=== PATIENT | female | born 1950 | race Two or more races ===

== ENCOUNTER 2019-08-14 16:27 | Inpatient (IN) | payer OTHER, MEDICAID ==
[~2019-08-14] VITALS: Ht 157.5 cm; Wt 137.2 kg
[2019-08-14 17:03] LABS: Basophils # (auto) 0.1 10 ^3/uL (0-0.2); Basophils % (auto) 0.6 % (0.0-2.0); Eosinophils # (auto) 0.1 10 ^3/uL (0-0.8); Eosinophils % (auto) 1.1 % (0.0-7.0); Hematocrit 42.2 % (36.0-46.0); Hemoglobin 13.7 g/dL (12.2-16.2); Lymphocytes # (auto) 1.9 10 ^3/uL (0.4-5.4); Lymphocytes % (auto) 18.3 % (10.0-50.0); Mean Corpuscular Hemoglobin 29.7 pg (28.0-32.0); Mean Corpuscular Hgb Conc. 32.5 g/dL (32.0-36.0); Mean Corpuscular Volume 91.2 fL (80.0-100.0); Monocytes # (auto) 0.6 10 ^3/uL (0-1.3); Monocytes % (auto) 5.8 % (0.0-12.0); Neutrophils # (auto) 7.8 10 ^3/uL (1.6-8.6); Neutrophils % (auto) 74.2 % (37.0-80.0); Platelet Count (auto) 209 10^3/uL (140-450); Red Blood Cells 4.62 10^6/uL (4.0-5.20); Red Cell Distribution Width 16.9 % (11.8-14.3); White Blood Cell 10.5 10^3/uL (4.4-10.8)
[2019-08-14] MEDS ORDERED: FUROSEMIDE 40 MG/4 ML VIAL IV ONE (17:15)
[2019-08-14 17:19] LABS: Albumin 3.2 g/dL (3.4-5.0); Calcium 9.1 mg/dL (8.5-10.1)
[2019-08-14 17:25] LABS: Bilirubin, Total 0.5 mg/dL (0.2-1.0); Total Protein 7.6 g/dL (6.4-8.2)
[2019-08-14 17:28] LABS: BUN/Creatinine Ratio 15.6
[2019-08-14 17:36] LABS: INR 1.04 (0.9-1.15)
[2019-08-14 19:15] VITALS: BP 134/52
[2019-08-14] MEDS ORDERED: MORPHINE SULF INJ 2 MG/ML SYRINGE 1ML IV PRN (20:00)
[2019-08-14] MEDS ORDERED: ALBUTEROL SULF 2.5 MG/0.5ML(0.5%) NEB SOLN NEB PRN (20:00)
[2019-08-14] MEDS ORDERED: DEXTROSE (50%) 50ML SYRG IV PRN (20:00)
[2019-08-14] MEDS ORDERED: PROMETHAZINE HCL 25 MG/ML 1ML IV PRN (20:00)
[2019-08-14] MEDS ORDERED: NITROGLYCERIN 0.4 MG SL TAB SL PRN (20:00)
[2019-08-14] MEDS ORDERED: LACTULOSE 20Gm/30ML SOLN PO PRN (20:00)
[2019-08-14] MEDS ORDERED: TEMAZEPAM 15 MG CAP PO PRN (20:00)
[2019-08-14] MEDS ORDERED: traMADol HCL 50 MG TAB PO PRN (20:00)
[2019-08-14] MEDS: SODIUM CHLOR 0.9% PF (SALINE LOCK) 10ML VIAL/SYR IV SCH (22:09)
[2019-08-14] MEDS: ATORVASTATIN 20 MG TAB PO SCH (22:10)
[2019-08-14] MEDS: CARVEDILOL 3.125 MG TAB PO SCH (22:10)
[2019-08-14] MEDS: ACCU-CHEK COMFORT CURVE STRIP VI SCH (22:12)
[2019-08-14] MEDS: InsuLIN REG 1unit/0.01ml Soln (100units/ml) SC SCH (22:12)
[2019-08-14] MEDS: ALBUTEROL SULF 2.5 MG/0.5ML(0.5%) NEB SOLN NEB SCH (22:35)
[2019-08-14] MEDS: IPRATROPIUM BROM 0.5 MG/2.5ML INH SOL NEB SCH (22:35)
[2019-08-14] MEDS ORDERED: ALLO100T PO (22:52)
[2019-08-14] MEDS ORDERED: LIRA18IN2 SUBCUT (22:52)
[2019-08-14] MEDS ORDERED: ENAL2.5T PO (22:52)
[2019-08-14] MEDS ORDERED: LEVO25TA6 PO (22:52)
[2019-08-14] MEDS ORDERED: HYDR25TA4 PO (22:52)
[2019-08-14] MEDS ORDERED: ATOR1TAB PO (22:52)
[2019-08-14] MEDS ORDERED: INSLANTI SC (22:52)
[2019-08-14] MEDS ORDERED: AMLO5TAB15 PO (22:52)
[2019-08-15] VITALS (8 sets, daily range): BP systolic 122–149; BP diastolic 52–80
[2019-08-15] MEDS: ALBUTEROL SULF 2.5 MG/0.5ML(0.5%) NEB SOLN NEB SCH ×3 (06:30→22:37)
[2019-08-15] MEDS: FUROSEMIDE 40 MG/4 ML VIAL IV SCH ×2 (06:30→18:24)
[2019-08-15] MEDS: SODIUM CHLOR 0.9% PF (SALINE LOCK) 10ML VIAL/SYR IV SCH ×3 (06:30→21:40)
[2019-08-15] MEDS: IPRATROPIUM BROM 0.5 MG/2.5ML INH SOL NEB SCH ×3 (06:30→22:37)
[2019-08-15] MEDS: ACCU-CHEK COMFORT CURVE STRIP VI SCH ×4 (06:45→21:43)
[2019-08-15] MEDS: InsuLIN REG 1unit/0.01ml Soln (100units/ml) SC SCH ×4 (06:45→21:42)
[2019-08-15] MEDS: levoFLOXacin 500MG 100 ML IV SCH (09:56)
[2019-08-15] MEDS: ASPirin 81 mg TAB PO SCH (09:57)
[2019-08-15] MEDS: ENALAPRIL MALEATE 2.5 MG TAB PO SCH (09:57)
[2019-08-15] MEDS: CARVEDILOL 3.125 MG TAB PO SCH ×2 (09:58→21:41)
[2019-08-15] MEDS: NITROGLYCERIN 0.2MG/HR TOPICAL PATCH TD SCH (09:59)
[2019-08-15] MEDS ORDERED: ASPirin 81 mg TAB PO SCH (10:00)
[2019-08-15] MEDS ORDERED: ENOXAPARIN SOD 40 MG/0.4 ML SYRINGE SC SCH ×2 (10:00)
[2019-08-15 10:49] LABS: Albumin 3.1 g/dL (3.4-5.0); Calcium 8.8 mg/dL (8.5-10.1); Potassium 4.1 mmol/L (3.5-5.1)
[2019-08-15 10:54] LABS: BUN/Creatinine Ratio 23.6; Bilirubin, Total 0.4 mg/dL (0.2-1.0); Total Protein 7.6 g/dL (6.4-8.2)
[2019-08-15] MEDS: ENOXAPARIN SOD 100 MG/1 ML SYRINGE SC SCH ×2 (15:09→21:43)
[2019-08-15 16:11] LABS: Urine Bacteria MANY /hpf (None Seen); Urine Blood Negative /uL (Negative); Urine Hyaline Cast FEW /lpf (0 - 2); Urine Specific Gravity 1.014 (1.001-1.035); Urine WBC 2 /hpf (0 - 5)
[2019-08-15] MEDS: ATORVASTATIN 20 MG TAB PO SCH (21:41)
[2019-08-16 05:00] VITALS: BP 137/62
[2019-08-16] MEDS: SODIUM CHLOR 0.9% PF (SALINE LOCK) 10ML VIAL/SYR IV SCH ×3 (05:34→21:23)
[2019-08-16] MEDS: FUROSEMIDE 40 MG/4 ML VIAL IV SCH ×2 (05:35→18:21)
[2019-08-16] MEDS: ACCU-CHEK COMFORT CURVE STRIP VI SCH ×4 (06:05→21:54)
[2019-08-16] MEDS: InsuLIN REG 1unit/0.01ml Soln (100units/ml) SC SCH ×4 (06:05→21:54)
[2019-08-16] MEDS: IPRATROPIUM BROM 0.5 MG/2.5ML INH SOL NEB SCH ×3 (06:25→20:04)
[2019-08-16] MEDS: ALBUTEROL SULF 2.5 MG/0.5ML(0.5%) NEB SOLN NEB SCH ×3 (06:25→20:04)
[2019-08-16 06:49] LABS: Potassium 3.7 mmol/L (3.5-5.1)
[2019-08-16 06:51] LABS: BUN/Creatinine Ratio 30.3
[2019-08-16 09:00] VITALS: BP 146/87
[2019-08-16] MEDS: NITROGLYCERIN 0.2MG/HR TOPICAL PATCH TD SCH (10:00)
[2019-08-16] MEDS: ENOXAPARIN SOD 100 MG/1 ML SYRINGE SC SCH ×2 (10:19→21:25)
[2019-08-16] MEDS: levoFLOXacin 500MG 100 ML IV SCH (10:19)
[2019-08-16] MEDS: ENALAPRIL MALEATE 2.5 MG TAB PO SCH (10:20)
[2019-08-16] MEDS: ASPirin 81 mg TAB PO SCH (10:20)
[2019-08-16] MEDS: CARVEDILOL 3.125 MG TAB PO SCH ×2 (10:20→21:24)
[2019-08-16 14:08] VITALS: BP 114/55
[2019-08-16 16:36] VITALS: BP 119/65
[2019-08-16] MEDS: ATORVASTATIN 20 MG TAB PO SCH (21:24)
[2019-08-16 22:00] VITALS: BP 156/69
[2019-08-17 05:00] VITALS: BP 118/57
[2019-08-17] MEDS: SODIUM CHLOR 0.9% PF (SALINE LOCK) 10ML VIAL/SYR IV SCH ×3 (05:46→22:13)
[2019-08-17] MEDS: FUROSEMIDE 40 MG/4 ML VIAL IV SCH ×2 (05:46→18:15)
[2019-08-17] MEDS: InsuLIN REG 1unit/0.01ml Soln (100units/ml) SC SCH ×4 (06:04→22:12)
[2019-08-17] MEDS: ACCU-CHEK COMFORT CURVE STRIP VI SCH ×4 (06:05→22:13)
[2019-08-17] MEDS: IPRATROPIUM BROM 0.5 MG/2.5ML INH SOL NEB SCH ×2 (06:09→22:29)
[2019-08-17] MEDS: ALBUTEROL SULF 2.5 MG/0.5ML(0.5%) NEB SOLN NEB SCH ×2 (06:09→22:29)
[2019-08-17 08:53] VITALS: BP 156/81
[2019-08-17] MEDS: NITROGLYCERIN 0.2MG/HR TOPICAL PATCH TD SCH (10:00)
[2019-08-17] MEDS: ASPirin 81 mg TAB PO SCH (10:16)
[2019-08-17] MEDS: levoFLOXacin 500MG 100 ML IV SCH (10:16)
[2019-08-17] MEDS: CARVEDILOL 3.125 MG TAB PO SCH ×2 (10:17→22:15)
[2019-08-17] MEDS: ENALAPRIL MALEATE 2.5 MG TAB PO SCH (10:17)
[2019-08-17] MEDS: ENOXAPARIN SOD 100 MG/1 ML SYRINGE SC SCH ×2 (10:17→22:13)
[2019-08-17] MEDS ORDERED: LORazepam 2MG/ML-1ML VIAL IV PRN (13:45)
[2019-08-17 16:46] VITALS: BP 115/57
[2019-08-17 17:00] VITALS: BP 110/74
[2019-08-17] MEDS ORDERED: LEVOTHYROXINE SODIUM 25 MCG TAB PO ONE (17:00)
[2019-08-17] MEDS: SILDENAFIL CITRATE 20 MG TAB PO SCH (20:07)
[2019-08-17 22:00] VITALS: BP 123/77
[2019-08-17] MEDS: ATORVASTATIN 20 MG TAB PO SCH (22:13)
[2019-08-18 03:43] VITALS: BP 123/77
[2019-08-18 05:00] VITALS: BP 133/64
[2019-08-18 05:42] LABS: Basophils # (auto) 0.1 10 ^3/uL (0-0.2); Basophils % (auto) 0.6 % (0.0-2.0); Eosinophils # (auto) 0.2 10 ^3/uL (0-0.8); Eosinophils % (auto) 1.8 % (0.0-7.0); Hemoglobin 12.5 g/dL (12.2-16.2); Lymphocytes # (auto) 1.6 10 ^3/uL (0.4-5.4); Lymphocytes % (auto) 19.5 % (10.0-50.0); Mean Corpuscular Hemoglobin 29.9 pg (28.0-32.0); Mean Corpuscular Volume 90.8 fL (80.0-100.0); Monocytes # (auto) 0.6 10 ^3/uL (0-1.3); Monocytes % (auto) 6.9 % (0.0-12.0); Neutrophils % (auto) 71.2 % (37.0-80.0); Nucleated Red Blood Cells % 0.1 %; Platelet Count (auto) 209 10^3/uL (140-450); Red Blood Cells 4.19 10^6/uL (4.0-5.20); Red Cell Distribution Width 16.6 % (11.8-14.3); White Blood Cell 8.4 10^3/uL (4.4-10.8)
[2019-08-18 05:59] LABS: Calcium 8.8 mg/dL (8.5-10.1); Potassium 3.7 mmol/L (3.5-5.1)
[2019-08-18 06:01] LABS: BUN/Creatinine Ratio 34.4
[2019-08-18] MEDS: FUROSEMIDE 40 MG/4 ML VIAL IV SCH (06:11)
[2019-08-18] MEDS: SODIUM CHLOR 0.9% PF (SALINE LOCK) 10ML VIAL/SYR IV SCH ×3 (06:11→22:00)
[2019-08-18] MEDS: LEVOTHYROXINE SODIUM 25 MCG TAB PO SCH (06:12)
[2019-08-18] MEDS: ACCU-CHEK COMFORT CURVE STRIP VI SCH ×4 (06:12→22:00)
[2019-08-18] MEDS: InsuLIN REG 1unit/0.01ml Soln (100units/ml) SC SCH ×4 (06:14→21:59)
[2019-08-18] MEDS: ALBUTEROL SULF 2.5 MG/0.5ML(0.5%) NEB SOLN NEB SCH ×3 (06:48→21:25)
[2019-08-18] MEDS: IPRATROPIUM BROM 0.5 MG/2.5ML INH SOL NEB SCH ×3 (06:48→21:25)
[2019-08-18] MEDS: SILDENAFIL CITRATE 20 MG TAB PO SCH ×3 (08:42→22:00)
[2019-08-18 09:00] VITALS: BP 142/66
[2019-08-18] MEDS: ENOXAPARIN SOD 100 MG/1 ML SYRINGE SC SCH ×2 (10:45→22:00)
[2019-08-18] MEDS: ASPirin 81 mg TAB PO SCH (10:45)
[2019-08-18] MEDS: levoFLOXacin 500MG 100 ML IV SCH (10:45)
[2019-08-18] MEDS: CARVEDILOL 3.125 MG TAB PO SCH ×2 (10:46→22:00)
[2019-08-18] MEDS: ENALAPRIL MALEATE 2.5 MG TAB PO SCH (10:46)
[2019-08-18 12:36] VITALS: BP 131/61
[2019-08-18 21:46] VITALS: BP 136/89
[2019-08-18] MEDS: ATORVASTATIN 20 MG TAB PO SCH (21:59)
[2019-08-19 05:00] VITALS: BP 113/53
[2019-08-19 06:02] LABS: Basophils # (auto) 0 10 ^3/uL (0-0.2); Basophils % (auto) 0.6 % (0.0-2.0); Eosinophils # (auto) 0.2 10 ^3/uL (0-0.8); Eosinophils % (auto) 2.2 % (0.0-7.0); Hematocrit 38.5 % (36.0-46.0); Hemoglobin 12.7 g/dL (12.2-16.2); Lymphocytes # (auto) 1.5 10 ^3/uL (0.4-5.4); Lymphocytes % (auto) 19.4 % (10.0-50.0); Mean Corpuscular Hemoglobin 29.8 pg (28.0-32.0); Mean Corpuscular Hgb Conc. 32.9 g/dL (32.0-36.0); Mean Corpuscular Volume 90.7 fL (80.0-100.0); Monocytes # (auto) 0.5 10 ^3/uL (0-1.3); Monocytes % (auto) 6.6 % (0.0-12.0); Neutrophils # (auto) 5.7 10 ^3/uL (1.6-8.6); Neutrophils % (auto) 71.2 % (37.0-80.0); Nucleated Red Blood Cells % 0.1 %; Platelet Count (auto) 219 10^3/uL (140-450); Red Blood Cells 4.25 10^6/uL (4.0-5.20); Red Cell Distribution Width 16.8 % (11.8-14.3)
[2019-08-19] MEDS: SODIUM CHLOR 0.9% PF (SALINE LOCK) 10ML VIAL/SYR IV SCH ×3 (06:16→22:58)
[2019-08-19 06:18] LABS: Potassium 3.7 mmol/L (3.5-5.1)
[2019-08-19 06:28] LABS: BUN/Creatinine Ratio 32.9; Calcium 8.7 mg/dL (8.5-10.1)
[2019-08-19] MEDS: ACCU-CHEK COMFORT CURVE STRIP VI SCH ×4 (06:28→22:08)
[2019-08-19] MEDS: LEVOTHYROXINE SODIUM 25 MCG TAB PO SCH (06:28)
[2019-08-19] MEDS: InsuLIN REG 1unit/0.01ml Soln (100units/ml) SC SCH ×4 (06:34→22:08)
[2019-08-19] MEDS: ALBUTEROL SULF 2.5 MG/0.5ML(0.5%) NEB SOLN NEB SCH ×3 (07:06→22:20)
[2019-08-19] MEDS: IPRATROPIUM BROM 0.5 MG/2.5ML INH SOL NEB SCH ×3 (07:06→22:20)
[2019-08-19 09:22] VITALS: BP 135/50
[2019-08-19] MEDS ORDERED: levoFLOXacin 500 MG TAB PO ONE (09:30)
[2019-08-19] MEDS: SILDENAFIL CITRATE 20 MG TAB PO SCH ×3 (09:53→22:55)
[2019-08-19] MEDS: ASPirin 81 mg TAB PO SCH (09:54)
[2019-08-19] MEDS: ENOXAPARIN SOD 100 MG/1 ML SYRINGE SC SCH (09:55)
[2019-08-19] MEDS: levoFLOXacin 500 MG TAB PO SCH (09:55)
[2019-08-19] MEDS: CARVEDILOL 3.125 MG TAB PO SCH ×2 (09:58→22:57)
[2019-08-19] MEDS: SODIUM CHLORIDE 0.9% 1,000 ML IV SCH (12:01)
[2019-08-19 12:52] VITALS: BP 136/63
[2019-08-19] MEDS ORDERED: IOHEXOL 350 MG/ML 100ML IJ ONE (15:11)
[2019-08-19 17:16] VITALS: BP 130/61
[2019-08-19 20:00] VITALS: BP 136/63
[2019-08-19 21:55] VITALS: BP 146/73
[2019-08-19] MEDS: APIXABAN 5 MG TAB PO SCH (22:57)
[2019-08-19] MEDS: ATORVASTATIN 20 MG TAB PO SCH (22:58)
[2019-08-20] VITALS (8 sets, daily range): BP systolic 102–164; BP diastolic 55–80
[2019-08-20] MEDS: SODIUM CHLORIDE 0.9% 1,000 ML IV SCH (01:33)
[2019-08-20 05:54] LABS: Basophils # (auto) 0.1 10 ^3/uL (0-0.2); Basophils % (auto) 0.8 % (0.0-2.0); Eosinophils # (auto) 0.2 10 ^3/uL (0-0.8); Eosinophils % (auto) 2.2 % (0.0-7.0); Hematocrit 36.9 % (36.0-46.0); Hemoglobin 12.2 g/dL (12.2-16.2); Lymphocytes # (auto) 1.4 10 ^3/uL (0.4-5.4); Mean Corpuscular Hemoglobin 29.8 pg (28.0-32.0); Mean Corpuscular Volume 90.2 fL (80.0-100.0); Monocytes # (auto) 0.6 10 ^3/uL (0-1.3); Monocytes % (auto) 7.8 % (0.0-12.0); Neutrophils # (auto) 5.8 10 ^3/uL (1.6-8.6); Neutrophils % (auto) 72.2 % (37.0-80.0); Nucleated Red Blood Cells % 0.1 %; Platelet Count (auto) 216 10^3/uL (140-450); Red Blood Cells 4.09 10^6/uL (4.0-5.20); Red Cell Distribution Width 16.4 % (11.8-14.3); White Blood Cell 8.1 10^3/uL (4.4-10.8)
[2019-08-20] MEDS: SODIUM CHLOR 0.9% PF (SALINE LOCK) 10ML VIAL/SYR IV SCH ×3 (06:00→21:39)
[2019-08-20] MEDS: LEVOTHYROXINE SODIUM 25 MCG TAB PO SCH (06:08)
[2019-08-20] MEDS: InsuLIN REG 1unit/0.01ml Soln (100units/ml) SC SCH ×4 (06:08→22:30)
[2019-08-20] MEDS: ACCU-CHEK COMFORT CURVE STRIP VI SCH ×4 (06:09→22:30)
[2019-08-20 06:16] LABS: Albumin 2.9 g/dL (3.4-5.0); Calcium 8.4 mg/dL (8.5-10.1); Potassium 3.6 mmol/L (3.5-5.1)
[2019-08-20 06:20] LABS: BUN/Creatinine Ratio 30.8; Bilirubin, Total 0.6 mg/dL (0.2-1.0)
[2019-08-20] MEDS: SILDENAFIL CITRATE 20 MG TAB PO SCH ×3 (08:33→20:24)
[2019-08-20] MEDS: ALBUTEROL SULF 2.5 MG/0.5ML(0.5%) NEB SOLN NEB SCH ×3 (08:37→22:22)
[2019-08-20] MEDS: IPRATROPIUM BROM 0.5 MG/2.5ML INH SOL NEB SCH ×3 (08:37→22:22)
[2019-08-20] MEDS: levoFLOXacin 500 MG TAB PO SCH (09:59)
[2019-08-20] MEDS: APIXABAN 5 MG TAB PO SCH ×2 (09:59→21:40)
[2019-08-20] MEDS: ASPirin 81 mg TAB PO SCH (09:59)
[2019-08-20] MEDS: CARVEDILOL 3.125 MG TAB PO SCH ×2 (10:00→21:40)
[2019-08-20] MEDS: ACETAMINOPHEN 500 MG TAB PO PRN (16:56)
[2019-08-20] MEDS: ATORVASTATIN 20 MG TAB PO SCH (21:40)
[2019-08-21 05:30] VITALS: BP 135/95
[2019-08-21] MEDS: LEVOTHYROXINE SODIUM 25 MCG TAB PO SCH (06:35)
[2019-08-21] MEDS: SODIUM CHLOR 0.9% PF (SALINE LOCK) 10ML VIAL/SYR IV SCH (06:35)
[2019-08-21] MEDS: ACCU-CHEK COMFORT CURVE STRIP VI SCH ×2 (06:36→11:39)
[2019-08-21] MEDS: ACETAMINOPHEN 500 MG TAB PO PRN (06:38)
[2019-08-21] MEDS: InsuLIN REG 1unit/0.01ml Soln (100units/ml) SC SCH ×2 (06:52→12:18)
[2019-08-21 06:55] LABS: Basophils # (auto) 0 10 ^3/uL (0-0.2); Basophils % (auto) 0.5 % (0.0-2.0); Eosinophils # (auto) 0.2 10 ^3/uL (0-0.8); Eosinophils % (auto) 2.8 % (0.0-7.0); Hematocrit 34.3 % (36.0-46.0); Hemoglobin 11.3 g/dL (12.2-16.2); Lymphocytes # (auto) 1.3 10 ^3/uL (0.4-5.4); Lymphocytes % (auto) 18.3 % (10.0-50.0); Mean Corpuscular Hemoglobin 29.8 pg (28.0-32.0); Mean Corpuscular Hgb Conc. 32.9 g/dL (32.0-36.0); Mean Corpuscular Volume 90.7 fL (80.0-100.0); Monocytes # (auto) 0.6 10 ^3/uL (0-1.3); Monocytes % (auto) 7.7 % (0.0-12.0); Neutrophils # (auto) 5.2 10 ^3/uL (1.6-8.6); Neutrophils % (auto) 70.7 % (37.0-80.0); Nucleated Red Blood Cells % 0.1 %; Platelet Count (auto) 223 10^3/uL (140-450); Red Blood Cells 3.78 10^6/uL (4.0-5.20); Red Cell Distribution Width 16.6 % (11.8-14.3); White Blood Cell 7.3 10^3/uL (4.4-10.8)
[2019-08-21 07:07] LABS: BUN/Creatinine Ratio 28.8; Calcium 8.3 mg/dL (8.5-10.1); Potassium 3.9 mmol/L (3.5-5.1)
[2019-08-21] MEDS: ALBUTEROL SULF 2.5 MG/0.5ML(0.5%) NEB SOLN NEB SCH (07:10)
[2019-08-21] MEDS: IPRATROPIUM BROM 0.5 MG/2.5ML INH SOL NEB SCH (07:10)
[2019-08-21] MEDS: SILDENAFIL CITRATE 20 MG TAB PO SCH ×2 (07:54→14:00)
[2019-08-21 08:00] VITALS: BP 98/57
[2019-08-21 09:00] VITALS: BP 98/67
[2019-08-21] MEDS: CARVEDILOL 3.125 MG TAB PO SCH (09:43)
[2019-08-21] MEDS: levoFLOXacin 500 MG TAB PO SCH (09:44)
[2019-08-21] MEDS: APIXABAN 5 MG TAB PO SCH (09:44)
[2019-08-21] MEDS: ASPirin 81 mg TAB PO SCH (09:45)
[2019-08-21 13:00] VITALS: BP 141/59
[2019-08-21] MEDS ORDERED: SILD20TA PO (13:44)
[2019-08-21] MEDS ORDERED: APIX5TAB PO (13:44)
[2019-08-21 15:24] VITALS: BP 98/68
[2019-08-26] MEDS ORDERED: APIXABAN 5 MG TAB PO SCH (22:00)
== END 2019-08-21 17:00 | disposition home health service (06) | DRG 175 ==
LOC: ER 16:27 → TELE 16:28 → TELE-EAST 19:15 → TELE-WESTW 08-15 02:52
PROVIDERS: ADMIT Internal Medicine; ATTEND Internal Medicine Nephrology
DX: I26.99 Other pulmonary embolism without acute cor pulmonale (principal); J96.01 Acute respiratory failure with hypoxia; N17.0 Acute kidney failure with tubular necrosis; I50.43 Acute on chronic combined systolic (congestive) and diastolic (congestive) heart failure; I13.0 Hypertensive heart and chronic kidney disease with heart failure and stage 1 through stage 4 chronic kidney disease, or unspecified chronic kidney disease; Z68.43 Body mass index [BMI] 50.0-59.9, adult; I27.20 Pulmonary hypertension, unspecified; E66.01 Morbid (severe) obesity due to excess calories; E11.22 Type 2 diabetes mellitus with diabetic chronic kidney disease; E11.65 Type 2 diabetes mellitus with hyperglycemia; G47.33 Obstructive sleep apnea (adult) (pediatric); E03.9 Hypothyroidism, unspecified; N18.3 Chronic kidney disease, stage 3 (moderate); Z82.49 Family history of ischemic heart disease and other diseases of the circulatory system; Z91.19 Patient's noncompliance with other medical treatment and regimen; I25.2 Old myocardial infarction; Z20.828 Contact with and (suspected) exposure to other viral communicable diseases
CPT/HCPCS: 36415; 36600; 71045; 71275; 78582; 80048; 80053; 81001; 82550; 82805; 82962; 83036; 83880; 84484; 85025; 85379; 85610; 85730; 87070; 87804; 87880; 93005; 93306; 93970; 94640; 99291; G0378; J1815; J1956

== ENCOUNTER 2024-08-29 14:23 | Inpatient (IN) | payer OTHER, MEDICAID ==
[~2024-08-29] VITALS: Ht 160 cm; Wt 139.1 kg
[2024-08-29 01:00] VITALS: BP 148/95; PULSE 68; RESP 17; TEMP 97; O2SAT 93
[~2024-08-29 14:23] MED LIST: ALLO100T PO; AMLO1TAB22 PO; APIX5TAB PO; ATOR-47 PO; ENAL1TAB42 PO; HYDR25TA4 PO; INSLANTI SC; LEVO25TA6 PO; LIRA18IN2 SUBCUT; SILD20TA PO
--- NOTE | 2024-08-29 14:35 | ECG ---
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
[2024-08-29 15:19] LABS: Urine Bacteria FEW /hpf (None Seen); Urine Blood Negative /uL (Negative); Urine Clarity Clear (Clear); Urine Color Colorless (Yellow); Urine Hyaline Cast FEW /lpf (0 - 2); Urine Protein, UAD Negative (Negative); Urine Specific Gravity 1.007 (1.001-1.035); Urine Squamous Epithelial Cell FEW /hpf (<5); Urine Urobilinogen Normal (Negative); Urine WBC 1 /HPF (0-5)
--- NOTE | 2024-08-29 15:24 | ED.PDOC ---
General HPI Comments 73 y/o F, with PMHx of GOUT, HTN, HLD, CHF and DM presents to the ED for CC of flank pain. Patient states, she has been experiencing right flank pain with associated symptoms of malaise x1day. Patient reports, she was prompted to check her BP d/t symptoms and had a hypertensive reading of 190/100mmHg. Patient denies fever, dysuria, hematuria, nausea, or vomiting. No other symptoms or modifying factors present at this time. Chief Complaint: Flank Pain Time Seen by MD: 15:10 Primary Care Provider: Dr. Morales Reviewed notes: Nurses Notes, Medications, Allergies Allergies: Coded Allergies: NO KNOWN ALLERGIES (Unverified , 08/14/19) Home Meds Active Scripts Apixaban Base (ELIQUIS) 5 Mg Tab, 5 MG PO BID for 30 Days, #60 TAB start from August 25 this dose Prov:LARA MANTILLA MD 08/21/19 Apixaban Base (ELIQUIS) 5 Mg Tab, 2 TAB PO BID for 5 Days, #20 TAB 0 Refills dose total of 10mg twice a day for 5 more days and then start taking 5mg twice a day continuosly Prov:LARA MANTILLA MD 08/21/19 Sildenafil Citrate (Revatio) 20 Mg Tab, 20 MG PO TID for 30 Days, #90 TAB 0 Refills Prov:LARA MANTILLA MD 08/21/19 Reported Medications Insulin Glargine (Lantus) 100 Unit/Ml Inj, 44 UNIT SC DAILY, INJ 08/14/19 Liraglutide (Victoza) 18 Mg/3 Ml Inj, 1.8 MG SUBCUT DAILY, #9 ML 3 Refills 08/14/19 Hydrochlorothiazide (Hydrochlorothiazide) 25 Mg Tab, 25 MG PO DAILY for 30 Days, MG 08/14/19 Enalapril Maleate (Enalapril Maleate) 2.5 Mg Tab, 2.5 MG PO DAILY for 30 Days, MG 08/14/19 Amlodipine Besylate (Amlodipine Besylate) 5 Mg Tab, 5 MG PO DAILY for 30 Days, MG 08/14/19 Atorvastatin Calcium (ATORVASTATIN CALCIUM) 80 Mg Tab, 80 MG PO DAILY, TAB 08/14/19 Levothyroxine Sodium (Levothyroxine Sodium) 25 Mcg Tab, 25 MCG PO QAM, MCG 08/14/19 Allopurinol (Allopurinol) 100 Mg Tab, 100 MG PO DAILY for 30 Days, MG 08/14/19 Information Source: Patient Mode of Arrival: Wheelchair Severity: Moderate Timing: Days Duration: Since onset Prehospital treatment: None Onset: Spontaneous Symptoms: None History of: None Location: None Modifying factors: None associated signs and symptoms: Flank Pain Past Medical History PAST MEDICAL HISTORY: CHF, DM, Gout, High Lipids, HTN Surgical History: Denies all surgeries 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 Family History Family History: Unknown Social History Smoker: Non-Smoker Alcohol: Denies ETOH Use Drugs: Denies Drug Use Lives In: Home Constitutional: reports: malaise; denies: chills, diaphoresis, fatigue, fever, sweats, weakness, others EENTM: denies: blurred vision, double vision, ear bleeding, ear discharge, ear drainage, ear pain, ear ringing, eye pain, eye redness, hearing loss, mouth pain, mouth swelling, nasal discharge, nose bleeding, nose congestion, nose pain, photophobia, tearing, throat pain, throat swelling, voice changes, others Respiratory: denies: cough, hemoptysis, orthopnea, SOB at rest, shortness of breath, SOB with excertion, stridor, wheezing, others Cardiovascular: denies: chest pain, dizzy spells, diaphoresis, Dyspnea on exertion, edema, irregular heart beat, left arm pain, lightheadedness, palpitations, PND, syncope, others Gastrointestinal: denies: abdomen distended, abdominal pain, blood streaked bowels, constipated, diarrhea, dysphagia, difficulty swallowing, hematemesis, melena, nausea, poor appetite, poor fluid intake, rectal bleeding, rectal pain, vomiting, others Genitourinary: reports: flank pain; denies: abnormal vagina bleeding, burning, dyspareunia, dysuria, frequency, hematuria, incontinence, pain, , vagina discharge, urgency, others Neurological: denies: dizziness, fainting, headache, left sided numbness, left sided weakness, numbness, paresthesia, pre-existing deficit, right sided numbness, right sided weakness, seizure, speech problems, tingling, tremors, weakness, others Musculoskeletal: denies: back pain, gout, joint pain, joint swelling, muscle pain, muscle stiffness, neck pain, others Integumetry: denies: bruises, change in color, change in hair/nails, dryness, laceration, lesions, lumps, rash, wounds, others Allergic/Immunocompromised: denies: Difficulty Healing, Frequent Infections, Hives, Itching, others Hematologic/Lymphatic: denies: anemia, blood clots, easy bleeding, easy bruising, swollen glands, others Endocrine: denies: excessive hunger, excessive sweating, excessive thirst, excessive urination, flushing, intolerance to cold, intolerance to heat, unexplained weight gain, unexplained weight loss, others Psychiatric: denies: anxiety, bipolar disorder, depression, hopeless, panic disorder, schizophrenia, sleepless, suicidal, others All Other Systems: Reviewed and Negative Physical Exam General Appearance: Moderate Distress, Obese HEENT: Normal ENT Inspection, PERRL/EOMI Neck: Full Range of Motion, Non-Tender, Normal, Normal Inspection Respiratory: Chest Non-Tender, Lungs Clear, No Accessory Muscle Use, No Respiratory Distress, Normal Breath Sounds Cardiovascular: No Edema, No JVD, No Murmur, No Gallop, Normal Peripheral Pulses, Regular Rate/Rhythm Breast Exam: Deferred Gastrointestinal: No Organomegaly, Non Tender, No Pulsatile Mass, Normal Bowel Sounds, Soft, Other (Morbid obesity) Genitalia: Deferred Pelvic: Deferred Rectal: Deferred Extremities: No calf tenderness, Normal capillary refill, Normal inspection, Normal range of motion, Non-tender, No pedal edema Musculoskeletal : Location: Right Extremity Location: Back Apperance: Limited ROM, Tenderness: Moderate 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 Was a procedure done?: No EKG EKG : Pulse Rate (adult): 83 [place]an: LAD Block: RBBB Differential Diagnosis Kidney stone (Female): DJD, Musculoskeletal pain, Pyelonephritis Kidney stone (Male): N/A Penile/Scrotal: N/A Urinary Problem (Male): N/A Urinary Problem (Female): Pyelonephritis, UTI X-Ray, Labs, Meds, VS Vital Signs Date Time Temp Pulse Resp B/P (MAP) Pulse Ox O2 Delivery O2 Flow Rate FiO2 08/29/24 15:50 83 08/29/24 14:32 83 08/29/24 14:30 98.4 89 16 168/75 (106) 94 98.4 Lab Test 08/29/24 16:03 08/29/24 14:37 08/29/24 14:33 Range/Units White Blood Count 10.4 4.4-10.8 10^3/uL Red Blood Count 4.65 4.0-5.20 10^6/uL Hemoglobin 14.0 12.2-16.2 g/dL Hematocrit 42.3 36.0-46.0 % Mean Corpuscular Volume 90.9 80.0-100.0 fL Mean Corpuscular Hemoglobin 30.0 28.0-32.0 pg Mean Corpuscular Hemoglobin Concent 33.0 32.0-36.0 g/dL Red Cell Distribution Width 16.4 H 11.8-14.3 % Platelet Count 294 140-450 10^3/uL Mean Platelet Volume 7.9 6.9-10.8 fL Neutrophils (%) (Auto) 80.2 H 37.0-80.0 % Lymphocytes (%) (Auto) 13.8 10.0-50.0 % Monocytes (%) (Auto) 4.8 0.0-12.0 % Eosinophils (%) (Auto) 0.4 0.0-7.0 % Basophils (%) (Auto) 0.8 0.0-2.0 % Neutrophils # (Auto) 8.3 1.6-8.6 10 ^3/uL Lymphocytes # (Auto) 1.4 0.4-5.4 10 ^3/uL Monocytes # (Auto) 0.5 0-1.3 10 ^3/uL Eosinophils # (Auto) 0 0-0.8 10 ^3/uL Basophils # (Auto) 0.1 0-0.2 10 ^3/uL Nucleated Red Blood Cells 0.0 % Sodium Level 141 136-145 mmol/L Potassium Level 4.1 3.5-5.1 mmol/L Chloride Level 108 H 98-107 mmol/L Carbon Dioxide Level 22 20-31 mmol/L Anion Gap 11 5-15 Blood Urea Nitrogen 19 9-23 mg/dL Creatinine 1.16 H 0.550-1.02 mg/dL Glomerular Filtration Rate Calc 49 >90 mL/min BUN/Creatinine Ratio 16.4 10.0-20.0 Serum Glucose 216 H 74-106 mg/dL Calcium Level 10.3 8.7-10.4 mg/dL Magnesium Level 1.5 L 1.6-2.6 mg/dL Total Bilirubin 0.6 0.2-1.0 mg/dL Aspartate Amino Transferase (AST) 19 <34 U/L Alanine Aminotransferase (ALT) 23 7-40 U/L Alkaline Phosphatase 120 H 46-116 U/L Troponin I High Sensitivity 786 *H </=34 ng/L Total Protein 7.3 5.7-8.2 g/dL Albumin 4.5 3.2-4.8 g/dL Lipase Pending Urine Color Colorless Yellow Urine Clarity Clear Clear Urine pH 5.0 5.0-9.0 Urine Specific [place] 1.007 1.001-1.035 Urine Protein Negative Negative Urine Ketones Negative Negative Urine Blood Negative Negative /uL Urine Nitrite Negative Negative Urine Bilirubin Negative Negative Urine Urobilinogen Normal Negative mg/dL Urine Leukocyte Esterase Negative Negative /uL Urine RBC 1 0 - 4 /hpf Urine Microscopic WBC 1 0-5 /HPF Urine Squamous Epithelial Cells Few <5 /hpf Urine Bacteria Few H None Seen /hpf Urine Hyaline Casts Few 0 - 2 /lpf Urine Glucose Normal Normal mg/dL POC Glucose 208 H 70-106 mg/dl Current Medications Medications (Trade) Dose Ordered Sig/Sandro Route Start Time Stop Time Status Last Admin Metoclopramide HCl (Reglan Injection) 10 mg ONCE ONCE IV 08/29/24 15:45 08/29/24 15:48 DC 08/29/24 16:26 Sodium Chloride 1,000 ml @ 250 mls/hr Q4H ONCE IV 08/29/24 15:45 08/29/24 19:44 08/29/24 16:28 Ketorolac Tromethamine (Toradol Injection) 30 mg ONCE ONCE IV 08/29/24 15:45 08/29/24 15:48 DC 08/29/24 16:[address] [address] Ph: [phone] DIAGNOSTIC IMAGING Diagnostic Imaging Report : [id number] Signed PATIENT: SRI ELIZABETH ACCT: [id number] UNIT: [id number] : 1950 LOC: ER ROOM / BED: / AGE / SEX: 73 / F ADM STATUS: REG ER SERVICE 1545 ORDERING PHYSICIAN: CARLEY NEGRETE MD PROCEDURE(s): CXR2 - CHEST TWO VIEWS ROUTINE REASON: Shortness of breath uncontrolled hypertension ORDER NUMBER(s): [id number], ACCESSION NUMBER(s): [id number] XY CHEST TWO VIEWS ROUTINE CLINICAL HISTORY: Shortness of breath uncontrolled hypertension COMPARISON: None TECHNIQUE: Frontal and lateral view of the chest was obtained FINDINGS: Lines and Tubes: None Lungs: No focal consolidation. Pleura: No effusion. No pneumothorax. Cardiomediastinal contours: Unremarkable Bones: No acute osseous abnormality. IMPRESSION: 1. No acute cardiopulmonary disease. ATED BY: VISHNU BLAIR Jr., DO DICTATED DATE/TIME: 08/29/241613 SIGNED BY: VISHNU BLAIR Jr., SIGNED DATE/TIME: 08/29/241613 CC: X-Ray, Labs, Meds, VS Comment Course in the emergency department eventful patient came in complaining of shortness of breath and back pain and history of gout hypothyroidism hypertension and diabetes patient is morbidly obese Chest x-ray is normal EKG shows normal sinus rhythm at 83 with a right bundle-branch block and left anterior fascicular block Urine is negative [place] [id number] with 80% neutrophils normal H&H CMP blood sugar is 208 the GFR is at 49 Magnesium 1.5 Lipase pending Patient will be admitted for further care Time of 1ST Reevaluation: 15:40 Reevaluation 1ST: Unchanged Time of 2ND Reevaluation: 16:39 Reevaluation 2ND: Unchanged Patient Education/Counseling: Diagnosis, Treatment, Prognosis Family Education/Counseling: Diagnosis, Treatment, Prognosis, No Family Present Departure 1 Departure Time of Disposition: 16:41 Impression: Primary Impression: Acute coronary syndrome with high troponin Additional Impressions: Uncontrolled diabetes mellitus Diabetic nephropathy Hypomagnesemia Disposition: ADMITTED INPATIENT Admit to: [facility]I Condition: Serious Critical Care Note Critical Care Time?: No Stability Stability form required: Yes Unstable for transfer: ICU, CCU, PCU, MALATHI (Intensive VS monitoring), Requires medication (Requires Med for stabilization) Heart Score Heart Score: Heart Score Response (Comments) Value History Moderate Suspicious 1 EKG Repolarization Disturb 1 Age >65 2 Risk Factors >3 or Hx ASHD 2 Troponin >3 x's Normal limit 2 Total 8 I personally scribed for CARLEY NEGRETE MD ([email or web address]) on 08/29/24 at 15:24. Electronically submitted by Suyapa Lemon ([email or web address]). I personally scribed for CARLEY NEGRETE MD ([email or web address]) on 08/29/24 at 16:19. Electronically submitted by Suyapa Lemon ([email or web address]). CARLEY NEGRETE MD Aug 29, 2024 15:24
--- NOTE | 2024-08-29 16:17 | DVH ---
XY CHEST TWO VIEWS ROUTINE CLINICAL HISTORY: Shortness of breath uncontrolled hypertension COMPARISON: None TECHNIQUE: Frontal and lateral view of the chest was obtained FINDINGS: Lines and Tubes: None Lungs: No focal consolidation. Pleura: No effusion. No pneumothorax. Cardiomediastinal contours: Unremarkable Bones: No acute osseous abnormality. IMPRESSION: 1. No acute cardiopulmonary disease.
[2024-08-29 16:20] LABS: Basophils # (auto) 0.1 10 ^3/uL (0-0.2); Basophils % (auto) 0.8 % (0.0-2.0); Eosinophils # (auto) 0 10 ^3/uL (0-0.8); Eosinophils % (auto) 0.4 % (0.0-7.0); Hematocrit 42.3 % (36.0-46.0); Lymphocytes # (auto) 1.4 10 ^3/uL (0.4-5.4); Lymphocytes % (auto) 13.8 % (10.0-50.0); Mean Corpuscular Volume 90.9 fL (80.0-100.0); Monocytes # (auto) 0.5 10 ^3/uL (0-1.3); Monocytes % (auto) 4.8 % (0.0-12.0); Neutrophils # (auto) 8.3 10 ^3/uL (1.6-8.6); Neutrophils % (auto) 80.2 % (37.0-80.0); Platelet Count (auto) 294 10^3/uL (140-450); Red Blood Cells 4.65 10^6/uL (4.0-5.20); Red Cell Distribution Width 16.4 % (11.8-14.3); White Blood Cell 10.4 10^3/uL (4.4-10.8)
[2024-08-29] MEDS: METOCLOPRAMIDE HCL 5MG/ml INJ 2ml VIAL IV ONE (16:26)
[2024-08-29] MEDS: KETOROLAC TROMETH 30 MG/ML 1ML VIAL IV ONE ×2 (16:27→16:39)
[2024-08-29] MEDS: SODIUM CHLORIDE 0.9% 1,000 ML IV ONE (16:28)
[2024-08-29 16:33] LABS: Alanine Aminotransferase 23 U/L (7-40); Albumin 4.5 g/dL (3.2-4.8); Anion Gap 11 (5-15); Aspartate Aminotransferase 19 U/L (<34); BUN/Creatinine Ratio 16.4 (10.0-20.0); Blood Urea Nitrogen 19 mg/dL (9-23); Calcium 10.3 mg/dL (8.7-10.4); Carbon Dioxide 22 mmol/L (20-31); Potassium 4.1 mmol/L (3.5-5.1); Sodium 141 mmol/L (136-145); Total Protein 7.3 g/dL (5.7-8.2)
[2024-08-29 16:34] LABS: Alkaline Phosphatase 120 U/L (46-116); Bilirubin, Total 0.6 mg/dL (0.2-1.0); Chloride 108 mmol/L (98-107); Glucose 216 mg/dL (74-106); Magnesium 1.5 mg/dL (1.6-2.6)
[2024-08-29 16:44] LABS: Lipase 48 U/L (12-53)
[2024-08-29 17:00] VITALS: PULSE 81; RESP 17; O2SAT 94
[2024-08-29] MEDS ORDERED: hydrALAZINE HCL 20 MG/ML VL IV PRN (17:00)
[2024-08-29] MEDS ORDERED: ACETAMINOPHEN 325 MG TAB PO PRN (17:00)
[2024-08-29] MEDS ORDERED: DEXTROSE (50%) 50ML SYRG IV PRN (17:00)
[2024-08-29] MEDS: MAGNESIUM SULFATE 1GM/100ML 100 ML IV SCH ×2 (17:12→17:47)
[2024-08-29] MEDS: ACCU-CHEK COMFORT CURVE STRIP VI SCH (17:28)
[2024-08-29] MEDS: InsuLIN REG 1unit/0.01ml Soln (100units/ml) SC SCH (17:31)
--- NOTE | 2024-08-29 17:56 | DVHHP2 ---
History of Present Illness Reason for Visit: Right flank pain History of Present Illness This is a 73-year-old female with history of gout, hypertension, hyperlipidemia, obesity, CHF and type 2 DM who presents to ED with chief complaint of right flank pain associated with malaise and uncontrolled elevated blood pressure x1 day. Patient reports that she checked her blood pressure at home and noted it to be 190/100 mmHg despite taking her antihypertensive medications at home. The patient is concerned about her symptoms and would like to be further evaluated and treated. The patient denies fever, chills, dizziness, shortness of breath, chest pain, dysuria, hematuria, nausea, vomiting, diarrhea and other associated symptoms. The patient will be admitted under hospitalist care to the telemetry unit for continuous monitoring. The plan has been discussed with the patient and primary RN in which all questions concerns have been addressed Cardiovascular: CHF, HTN, hyperipidemia Rheumatologic: Gout Endocrine: Diabetes Past Surgical History Hernia repair Family History: None Smoke: No ALCOHOL: none Drugs: None Lives: Alone Domestic Violence: Neg Review of Systems Constitutional: Yes: Malaise Genitourinary: Other (Right flank pain) Allergies: Coded Allergies: NO KNOWN ALLERGIES (Unverified , 08/14/19) Medications Current Medications Medications Dose Ordered Sig/Sandro Route Start Time Stop Time Status Last Admin Dose Admin Magnesium Sulfate/ Dextrose 100 ml @ 100 mls/hr Q1H IV 08/29/24 17:00 08/29/24 19:59 08/29/24 17:12 100 MLS/HR Ketorolac Tromethamine 15 mg Q6HPRN PRN IV 08/29/24 17:00 09/03/24 16:59 Enoxaparin Sodium 40 mg DAILY SC 08/30/24 10:00 Acetaminophen 650 mg Q6HP PRN PO 08/29/24 17:00 Diagnostic Test (Pha) 1 strip ACHS 08/29/24 17:00 08/29/24 17:28 1 STRIP Insulin Human Regular ACHS SC 08/29/24 17:00 08/29/24 17:31 4 UNITS Dextrose 50 ml UD PRN IV 08/29/24 17:00 Hydralazine HCl 10 mg Q6HP PRN IV 08/29/24 17:00 Allopurinol 100 mg DAILY PO 08/30/24 10:00 Amlodipine Besylate 5 mg DAILY PO 08/30/24 10:00 Enalapril Maleate 2.5 mg DAILY PO 08/30/24 10:00 Hydrochlorothiazide 25 mg DAILY PO 08/30/24 10:00 Levothyroxine Sodium 25 mcg QAM PO 08/30/24 07:00 Sildenafil Citrate 20 mg TID PO 08/29/24 22:00 Atorvastatin Calcium 80 mg HS PO 08/29/24 22:00 Magnesium Sulfate/ Dextrose 100 ml @ 100 mls/hr Q1H IV 08/29/24 17:00 08/29/24 18:59 UNV Exam Vital Signs Vital Signs Date Time Temp Pulse Resp B/P (MAP) Pulse Ox O2 Delivery O2 Flow Rate FiO2 08/29/24 15:50 83 08/29/24 14:30 98.4 16 168/75 (106) 94 98.4 General Appearance: Alert, Oriented X3, Cooperative, No acute distress HEENT: Atraumatic, PERRLA, Mucous membr. moist/pink Respiratory: Clear to auscultation, Normal air movement Cardiovascular: Normal S1, Normal S2, No murmurs Abdominal: Normal bowel sounds, Soft, No hepatospenomegaly, No masses Extremities: No clubbing, No cyanosis, Normal pulses, No tenderness/swelling Skin: No rashes Neuro: Normal speech, Normal tone, Sensation intact, Cranial nerves 3-12 NL Psych/Mental Status: Mental status NL Labs/Xrays Labs Test 08/29/24 16:03 08/29/24 14:37 08/29/24 14:33 Range/Units White Blood Count 10.4 4.4-10.8 10^3/uL Red Blood Count 4.65 4.0-5.20 10^6/uL Hemoglobin 14.0 12.2-16.2 g/dL Hematocrit 42.3 36.0-46.0 % Mean Corpuscular Volume 90.9 80.0-100.0 fL Mean Corpuscular Hemoglobin 30.0 28.0-32.0 pg Mean Corpuscular Hemoglobin Concent 33.0 32.0-36.0 g/dL Red Cell Distribution Width 16.4 H 11.8-14.3 % Platelet Count 294 140-450 10^3/uL Mean Platelet Volume 7.9 6.9-10.8 fL Neutrophils (%) (Auto) 80.2 H 37.0-80.0 % Lymphocytes (%) (Auto) 13.8 10.0-50.0 % Monocytes (%) (Auto) 4.8 0.0-12.0 % Eosinophils (%) (Auto) 0.4 0.0-7.0 % Basophils (%) (Auto) 0.8 0.0-2.0 % Neutrophils # (Auto) 8.3 1.6-8.6 10 ^3/uL Lymphocytes # (Auto) 1.4 0.4-5.4 10 ^3/uL Monocytes # (Auto) 0.5 0-1.3 10 ^3/uL Eosinophils # (Auto) 0 0-0.8 10 ^3/uL Basophils # (Auto) 0.1 0-0.2 10 ^3/uL Nucleated Red Blood Cells 0.0 % Sodium Level 141 136-145 mmol/L Potassium Level 4.1 3.5-5.1 mmol/L Chloride Level 108 H 98-107 mmol/L Carbon Dioxide Level 22 20-31 mmol/L Anion Gap 11 5-15 Blood Urea Nitrogen 19 9-23 mg/dL Creatinine 1.16 H 0.550-1.02 mg/dL Glomerular Filtration Rate Calc 49 >90 mL/min BUN/Creatinine Ratio 16.4 10.0-20.0 Serum Glucose 216 H 74-106 mg/dL Calcium Level 10.3 8.7-10.4 mg/dL Magnesium Level 1.5 L 1.6-2.6 mg/dL Total Bilirubin 0.6 0.2-1.0 mg/dL Aspartate Amino Transferase (AST) 19 <34 U/L Alanine Aminotransferase (ALT) 23 7-40 U/L Alkaline Phosphatase 120 H 46-116 U/L Troponin I High Sensitivity 786 *H </=34 ng/L Total Protein 7.3 5.7-8.2 g/dL Albumin 4.5 3.2-4.8 g/dL Lipase 48 12-53 U/L Urine Color Colorless Yellow Urine Clarity Clear Clear Urine pH 5.0 5.0-9.0 Urine Specific Otto 1.007 1.001-1.035 Urine Protein Negative Negative Urine Ketones Negative Negative Urine Blood Negative Negative /uL Urine Nitrite Negative Negative Urine Bilirubin Negative Negative Urine Urobilinogen Normal Negative mg/dL Urine Leukocyte Esterase Negative Negative /uL Urine RBC 1 0 - 4 /hpf Urine Microscopic WBC 1 0-5 /HPF Urine Squamous Epithelial Cells Few <5 /hpf Urine Bacteria Few H None Seen /hpf Urine Hyaline Casts Few 0 - 2 /lpf Urine Glucose Normal Normal mg/dL POC Glucose 208 H 70-106 mg/dl ORDERING PHYSICIAN: CARLEY NEGRETE MD PROCEDURE(s): CXR2 - CHEST TWO VIEWS ROUTINE REASON: Shortness of breath uncontrolled hypertension ORDER NUMBER(s): [id number], ACCESSION NUMBER(s): [id number] XY CHEST TWO VIEWS ROUTINE CLINICAL HISTORY: Shortness of breath uncontrolled hypertension COMPARISON: None TECHNIQUE: Frontal and lateral view of the chest was obtained FINDINGS: Lines and Tubes: None Lungs: No focal consolidation. Pleura: No effusion. No pneumothorax. Cardiomediastinal contours: Unremarkable Bones: No acute osseous abnormality. IMPRESSION: 1. No acute cardiopulmonary disease. ATED BY: VISHNU LYN Jr., DO DICTATED DATE/TIME: 08/29/241613 SIGNED BY: VISHNU LYN Jr., SIGNED DATE/TIME: 08/29/241613 CC: Assessment/Plan Assessment/Plan Right flank pain-patient complaint of right flank pain associated with malaise and elevated blood pressure x1 day Home BP 190/100 mmHg Admit to telemetry unit for continuous monitoring Reviewed CBC which is normal Reviewed BMP magnesium 1.5, troponin elevated at 786, blood glucose elevated 216 Lipase pending Urinalysis is pending Reviewed chest x-ray which is normal Uncontrolled hypertension Continue antihypertensive agents prescribed Hydralazine 10 mg IV push q.6 p.r.n. SBP greater than 160 mmHg Continue to monitor Type 2 DM Hold antidiabetic medication for now Regular insulin mild SS a.c. 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 Discussed plan of care with the patient in which all questions concerns have been addressed Plan discussed with: Patient My Orders Orders - LASHAY GALLEGOS Procedure Category Date Status Time Magnesium Sulfate PHA 08/29/24 In Process 1gm/100ml 17:00 Ketorolac Injection PHA 08/29/24 In Process (Toradol Injection) 17:00 2 Gm Sodium Diet DIET 08/29/24 Transmitted Dinner Enoxaparin Sodium PHA 08/30/24 In Process (Lovenox) 10:00 Complete Blood Count LAB 08/30/24 Verified 04:00 Comprehensive LAB 08/30/24 Verified Metabolic Panel 04:00 Condition: Fair SHERRY 08/29/24 In Process 16:49 Acetaminophen Tablet PHA 08/29/24 In Process (Tylenol Tablet) 17:00 Bedrest With Bathroom SHERRY 08/29/24 In Process Privileg 16:49 Glucose Blood PHA 08/29/24 In Process (Accu-Chek Comfort 17:00 Insulin R (Human) PHA 08/29/24 In Process (Insulin R) 17:00 Dextrose 50% Syringe PHA 08/29/24 In Process 17:00 Hydralazine Injection PHA 08/29/24 In Process (Apresoline Inject 17:00 Admit ADMIT 08/29/24 Transmitted 16:52 Allopurinol Tablet PHA 08/30/24 In Process (Zyloprim Tablet) 10:00 Amlodipine Tablet PHA 08/30/24 In Process (Norvasc Tablet) 10:00 Enalapril Tablet PHA 08/30/24 In Process (Vasotec Tablet) 10:00 Hydrochlorothiazide PHA 08/30/24 In Process Tablet (Hydrochlorot 10:00 Levothyroxine Tablet PHA 08/30/24 In Process (Synthroid Tablet) 07:00 Sildenafil Citrate PHA 08/29/24 In Process (Revatio) 22:00 Atorvastatin (Lipitor) PHA 08/29/24 In Process 22:00 Echo 2d Mode Cardiac US 08/29/24 Logged DOP 16:54 Date of Service: Aug 29, 2024 Billing Provider: LASHAY GALLEGOS Common Visit Codes: [id number] INP/OBS CARE (HIGH) LASHAY GALLEGOS Aug 29, 2024 17:56
[2024-08-29 19:30] VITALS: PULSE 69; RESP 14; O2SAT 94
[2024-08-29 21:15] VITALS: BP 158/83; PULSE 71; RESP 18; TEMP 96.9; O2SAT 97
[2024-08-29] MEDS: APIXABAN 5 MG TAB PO SCH (22:23)
[2024-08-29] MEDS: SILDENAFIL CITRATE 20 MG TAB PO SCH (22:26)
[2024-08-29] MEDS: ATORVASTATIN 20 MG TAB PO SCH (22:27)
[2024-08-29 23:45] VITALS: BP 142/70; PULSE 66; RESP 20; TEMP 97; O2SAT 96
[2024-08-30] VITALS (7 sets, daily range): BP systolic 133–167; BP diastolic 58–78; PULSE 68–78; RESP 18–20; TEMP 97–98; O2SAT 94–98
[2024-08-30 03:19] LABS: Basophils # (auto) 0.1 10 ^3/uL (0-0.2); Basophils % (auto) 0.6 % (0.0-2.0); Eosinophils # (auto) 0.2 10 ^3/uL (0-0.8); Eosinophils % (auto) 1.7 % (0.0-7.0); Hematocrit 38.1 % (36.0-46.0); Hemoglobin 12.7 g/dL (12.2-16.2); Lymphocytes # (auto) 2.1 10 ^3/uL (0.4-5.4); Lymphocytes % (auto) 23.7 % (10.0-50.0); Mean Corpuscular Hemoglobin 30.2 pg (28.0-32.0); Mean Corpuscular Hgb Conc. 33.4 g/dL (32.0-36.0); Mean Corpuscular Volume 90.5 fL (80.0-100.0); Monocytes # (auto) 0.7 10 ^3/uL (0-1.3); Monocytes % (auto) 8.2 % (0.0-12.0); Neutrophils # (auto) 5.8 10 ^3/uL (1.6-8.6); Neutrophils % (auto) 65.8 % (37.0-80.0); Nucleated Red Blood Cells % 0.1 %; Platelet Count (auto) 264 10^3/uL (140-450); Red Blood Cells 4.21 10^6/uL (4.0-5.20); Red Cell Distribution Width 16.4 % (11.8-14.3); White Blood Cell 8.9 10^3/uL (4.4-10.8)
[2024-08-30] MEDS ORDERED: GLIP2.5T9 PO (03:34)
[2024-08-30] MEDS ORDERED: FURO40TA4 PO (03:34)
[2024-08-30] MEDS ORDERED: CARV3.1240 PO (03:38)
[2024-08-30 03:48] LABS: Alanine Aminotransferase 20 U/L (7-40); Albumin 4.1 g/dL (3.2-4.8); Alkaline Phosphatase 104 U/L (46-116); Anion Gap 13 (5-15); Aspartate Aminotransferase 19 U/L (<34); BUN/Creatinine Ratio 19.2 (10.0-20.0); Bilirubin, Total 0.5 mg/dL (0.2-1.0); Blood Urea Nitrogen 24 mg/dL (9-23); Calcium 9.7 mg/dL (8.7-10.4); Carbon Dioxide 20 mmol/L (20-31); Chloride 108 mmol/L (98-107); Glucose 196 mg/dL (74-106); Potassium 3.9 mmol/L (3.5-5.1); Sodium 141 mmol/L (136-145); Total Protein 6.5 g/dL (5.7-8.2)
[2024-08-30] MEDS: LEVOTHYROXINE SODIUM 25 MCG TAB PO SCH (06:25)
[2024-08-30] MEDS ORDERED: ENOXAPARIN SOD 40 MG/0.4 ML SYRINGE SC SCH (10:00)
[2024-08-30] MEDS ORDERED: ENALAPRIL MALEATE 2.5 MG TAB PO SCH (10:00)
[2024-08-30] MEDS ORDERED: amLODIPine BESYLATE 5 MG TAB PO SCH (10:00)
[2024-08-30] MEDS ORDERED: ALLOPURINOL 100 MG TAB PO SCH (10:00)
[2024-08-30] MEDS ORDERED: hydroCHLOROthiazide 25 MG TAB PO SCH (10:00)
--- NOTE | 2024-08-30 13:42 | DVHPN2 ---
Reviewed: Care Plan, H&P, Labs, Medications, Previous Orders, Radiology Changes from previous H/P or p: No Changes Genitourinary: Other (Right flank pain) Objective Vitals Vital Signs Date Time Temp Pulse Resp B/P (MAP) Pulse Ox O2 Delivery O2 Flow Rate FiO2 08/30/24 09:13 98.0 71 20 133/58 (83) 95 98.0 08/29/24 23:45 Room Air* 0 21 Intake/Output Intake and Output 08/30/24 07:00 Intake Total 850 ml Balance 850 ml Intake Oral 300 ml IV Total 550 ml # Voids 1 Medications Current Medications Medications Dose Ordered Sig/Sandro Route Start Time Stop Time Status Last Admin Dose Admin Ketorolac Tromethamine 15 mg Q6HPRN PRN IV 08/29/24 17:00 09/03/24 16:59 Acetaminophen 650 mg Q6HP PRN PO 08/29/24 17:00 Diagnostic Test (Pha) 1 strip ACHS 08/29/24 17:00 08/30/24 11:52 1 STRIP Insulin Human Regular ACHS SC 08/29/24 17:00 08/30/24 06:36 2 UNITS Dextrose 50 ml UD PRN IV 08/29/24 17:00 Hydralazine HCl 10 mg Q6HP PRN IV 08/29/24 17:00 Allopurinol 100 mg DAILY PO 08/30/24 10:00 Amlodipine Besylate 5 mg DAILY PO 08/30/24 10:00 Enalapril Maleate 2.5 mg DAILY PO 08/30/24 10:00 Hydrochlorothiazide 25 mg DAILY PO 08/30/24 10:00 Levothyroxine Sodium 25 mcg QAM PO 08/30/24 07:00 08/30/24 06:25 25 MCG Sildenafil Citrate 20 mg TID PO 08/29/24 22:00 08/30/24 06:25 20 MG Atorvastatin Calcium 80 mg HS PO 08/29/24 22:00 08/29/24 22:27 80 MG Apixaban 5 mg BID PO 08/29/24 22:00 08/29/24 22:23 5 MG Laboratory Results Laboratory Tests 08/30/24 02:49 Chemistry Test 08/29/24 16:03 08/30/24 02:49 Albumin 4.5 g/dL (3.2-4.8) 4.1 g/dL (3.2-4.8) Calcium Level 10.3 mg/dL (8.7-10.4) 9.7 mg/dL (8.7-10.4) Magnesium Level 1.5 mg/dL (1.6-2.6) L Total Protein 7.3 g/dL (5.7-8.2) 6.5 g/dL (5.7-8.2) Lipid panel Test 08/29/24 16:03 Lipase 48 U/L (12-53) LFT Test 08/29/24 16:03 08/30/24 02:49 Alanine Aminotransferase (ALT) 23 U/L (7-40) 20 U/L (7-40) Alkaline Phosphatase 120 U/L (46-116) H 104 U/L (46-116) Aspartate Amino Transferase (AST) 19 U/L (<34) 19 U/L (<34) Total Bilirubin 0.6 mg/dL (0.2-1.0) 0.5 mg/dL (0.2-1.0) HgA1c, TSH Test 08/29/24 16:03 Thyroid Stimulating Hormone (TSH) 1.76 uIU/mL (0.55-4.78) Urinalysis Test 08/29/24 14:37 Urine Color Colorless (Yellow) Urine Clarity Clear (Clear) Urine pH 5.0 (5.0-9.0) Urine Specific [place] 1.007 (1.001-1.035) Urine Protein Negative (Negative) Urine Ketones Negative (Negative) Urine Blood Negative /uL (Negative) Urine Nitrite Negative (Negative) Urine Bilirubin Negative (Negative) Urine Urobilinogen Normal mg/dL (Negative) Urine Leukocyte Esterase Negative /uL (Negative) Urine RBC 1 /hpf (0 - 4) Urine Microscopic WBC 1 /HPF (0-5) Urine Squamous Epithelial Cells Few /hpf (<5) Urine Bacteria Few /hpf (None Seen) H Urine Hyaline Casts Few /lpf (0 - 2) Urine Glucose Normal mg/dL (Normal) Labs and/or images reviewed: Labs reviewed by me, Image(s) reviewed by me Assessment/Plan Assessment/Plan Hypertensive urgency with systolic of 190: Amlodipine Vasotec hydrochlorothiazide Elevated troponin 627: Consult for Dr. Luis Enrique Hernandez on chronic congestive heart failure systolic versus diastolic Hypertension Uncontrolled diabetes: Insulin sliding scale Gout Hypothyroidism: Synthroid AFib: Eliquis Hypercholesterolemia: Lipitor Pulmonary hypertension: Sildenafil Chest x-ray negative Time spent 70 minutes Advanced care planning time 20 minutes Patient is full code Plan discussed with: Patient My Orders Orders - CASSIA ONEAL MD Procedure Category Date Status Time * Cardiology Consult CONS 08/30/24 Verified 13:20 Date of Service: Aug 30, 2024 Billing Provider: CASSIA ONEAL MD Common Visit Codes: [id number] CARE 30-74 MIN CASSIA ONEAL MD Aug 30, 2024 13:42
--- NOTE | 2024-08-30 14:30 | DVH ---
Exam: CT CT AB PEL WO CON-NO ORAL OR IV History: rt flank pain Comparison Study: None TECHNIQUE: Multidetector CT of the abdomen and pelvis without IV contrast. Axial, coronal and sagitta l multiplanar reformats were obtained from the axial data set by the technologist. Radiation Dose Information: CT Dose: CTDI volume is 27.87 mGy. Dose-length product is 1434.96 mGy*cm FINDINGS: Bibasilar atelectasis/scarring. Partially visualized heart is unremarkable. Liver, pancreas and adrenal glands unremarkable. Calcified granulomas within the spleen. Cholelithias is without evidence of acute cholecystitis. Kidneys, and ureters are unremarkable. Limited evaluation of the urinary bladder due to decompressed state. Bulky appearance of the anterior uterine body. Otherwise, uterus and adnexa unremarkable. Stomach is unremarkable. Small bowel loops are unremarkable. Appendix is unremarkable. Descending co dalia and Sigmoid diverticulosis without diverticulitis. No evidence of intraperitoneal free air or free fluid. No evidence of aortic aneurysm. Moderate atherosclerotic calcification of the aorta and bilateral il iacs. No significant lymphadenopathy. Postsurgical changes of ventral periumbilical hernia repair. Minimal abdominal wall subcutaneous fat edema. Diffuse demineralization. Multilevel moderate severe degenera tive changes of the lumbar spine. No destructive osseous lesions are noted. IMPRESSION: No evidence of acute abdominopelvic abnormalities. Cholelithiasis without evidence of acute cholecystitis. Descending colon and Sigmoid diverticulosis without diverticulitis.
--- NOTE | 2024-08-30 15:48 | DVHSR ---
APPROVED REPORT EXAM: LIMITED Two-dimensional and M-mode echocardiogram with Doppler and color Doppler. Blood Pressure: 139/66 mmHg INDICATION CHF RISK FACTORS Obesity: Height: 5' 3", Weight: 305 DIMENSIONS LVDd5.9 (3.8-5.7cm)LA (2D)4.3 (1.9-4.0cm)Aortic Root2.9 (2.0-3.7cm) LVDs4.3 (2.5-4.0cm)LA (MM) (1.9-4.0cm)Aortic Cusp Exc1.6 (1.5-2.0cm) EF (%) 50.0 (55-70%)Rt. Atrium3.5 (1.9-4.0cm)Asc. Aorta cm IVSd1.0 (0.7-1.1cm)RV (D) (1.8-2.4cm) PWd1.0 (0.7-1.1cm) Mitral Valve MitralMitral Stenosis E wave1.30m/sMV Mean GR.mmHg A wave1.60m/sMV Peak GR.mmHg E/A ratio0.82D MVAcm2 Aortic Valve Aortic ValveAortic Stenosis V10.80m/Julius Mean GR.6mmHg V21.70m/Julius Peak GR.12mmHg LVOT Diameter2.1 (1.8-2.4cm)Doppler AVA1.63cm2 Pulmonic Valve V21.20m/s Other Information Quality : Technically LimitedRhythm : Technically limited study due to body habitus. Conclusion Sinus rhythm. First-degree AV block. Left atrial enlargement with concentric LVH. Moderate mitral annular calcification. Left ventricular function is preserved at 60% with normal RV function. Moderate TR. No pericardial effusion masses or vegetations.
[2024-08-30] MEDS: KETOROLAC TROMETH 30 MG/ML 1ML VIAL IV PRN (18:03)
[2024-08-30] MEDS: APIXABAN 2.5 MG TAB PO SCH (21:45)
[2024-08-30] MEDS: ENALAPRIL MALEATE 10 MG TAB PO SCH (21:48)
[2024-08-31] VITALS (8 sets, daily range): BP systolic 133–159; BP diastolic 72–132; PULSE 62–75; RESP 18–20; TEMP 97–98.1; O2SAT 94–100
[2024-08-31] MEDS: LEVOTHYROXINE SODIUM 50 MCG TAB PO SCH (05:21)
[2024-08-31] MEDS: FUROSEMIDE 40 MG TAB PO SCH (09:02)
[2024-08-31] MEDS: ALLOPURINOL 100 MG TAB PO SCH (09:03)
[2024-08-31] MEDS: CARVEDILOL 3.125 MG TAB PO SCH (09:04)
--- NOTE | 2024-08-31 09:35 | DVHPN2 ---
Reviewed: Care Plan, H&P, Labs, Medications, Previous Orders, Radiology Changes from previous H/P or p: No Changes Genitourinary: Other (Right flank pain) Objective Vitals Vital Signs Date Time Temp Pulse Resp B/P (MAP) Pulse Ox O2 Delivery O2 Flow Rate FiO2 08/31/24 09:04 65 159/132 08/31/24 08:55 97.3 20 100 97.3 08/30/24 20:00 Room Air* 0 21 Intake/Output Intake and Output 08/31/24 07:00 Intake Total 400 ml Balance 400 ml Intake Oral 400 ml # Voids 8 # Bowel Movements 3 Medications Current Medications Medications Dose Ordered Sig/Sandro Route Start Time Stop Time Status Last Admin Dose Admin Ketorolac Tromethamine 15 mg Q6HPRN PRN IV 08/29/24 17:00 09/03/24 16:59 08/30/24 18:03 15 MG Acetaminophen 650 mg Q6HP PRN PO 08/29/24 17:00 Diagnostic Test (Pha) 1 strip ACHS 08/29/24 17:00 08/31/24 05:21 1 STRIP Insulin Human Regular ACHS SC 08/29/24 17:00 08/31/24 06:27 3 UNITS Dextrose 50 ml UD PRN IV 08/29/24 17:00 Hydralazine HCl 10 mg Q6HP PRN IV 08/29/24 17:00 Sildenafil Citrate 20 mg TID PO 08/29/24 22:00 08/31/24 05:21 20 MG Atorvastatin Calcium 80 mg HS PO 08/29/24 22:00 08/30/24 21:45 80 MG Apixaban 2.5 mg BID PO 08/30/24 22:00 08/31/24 09:03 2.5 MG Enalapril Maleate 20 mg Q12HR PO 08/30/24 22:00 08/31/24 09:02 20 MG Furosemide 40 mg DAILY PO 08/31/24 10:00 08/31/24 09:02 40 MG Allopurinol 300 mg DAILY PO 08/31/24 10:00 08/31/24 09:03 300 MG Levothyroxine Sodium 50 mcg QAM@0600 PO 08/31/24 06:00 08/31/24 05:21 50 MCG Carvedilol 3.125 mg DAILY PO 08/31/24 10:00 08/31/24 09:04 3.125 MG Laboratory Results Laboratory Tests 08/30/24 02:49 Urinalysis Test 08/29/24 14:37 Urine Color Colorless (Yellow) Urine Clarity Clear (Clear) Urine pH 5.0 (5.0-9.0) Urine Specific [place] 1.007 (1.001-1.035) Urine Protein Negative (Negative) Urine Ketones Negative (Negative) Urine Blood Negative /uL (Negative) Urine Nitrite Negative (Negative) Urine Bilirubin Negative (Negative) Urine Urobilinogen Normal mg/dL (Negative) Urine Leukocyte Esterase Negative /uL (Negative) Urine RBC 1 /hpf (0 - 4) Urine Microscopic WBC 1 /HPF (0-5) Urine Squamous Epithelial Cells Few /hpf (<5) Urine Bacteria Few /hpf (None Seen) H Urine Hyaline Casts Few /lpf (0 - 2) Urine Glucose Normal mg/dL (Normal) Labs and/or images reviewed: Labs reviewed by me, Image(s) reviewed by me Assessment/Plan Assessment/Plan Hypertensive urgency with systolic of 190: Amlodipine Vasotec hydrochlorothiazide Elevated troponin 627: Consult for patient's driver service technician Dr. Little pending Acute on chronic congestive heart failure systolic versus diastolic Hypertension Uncontrolled diabetes: Insulin sliding scale Gout Hypothyroidism: Synthroid AFib: Eliquis Hypercholesterolemia: Lipitor Pulmonary hypertension: Sildenafil Chest x-ray negative Time spent 55 minutes Advanced care planning time 20 minutes Patient is full code Plan discussed with: Patient My Orders Orders - CASSIA ONEAL MD Procedure Category Date Status Time Ct Ab Pel Wo Con-No CT 08/30/24 Resulted Oral Or Iv 13:25 * Cardiology Consult CONS 08/30/24 Transmitted 13:37 Apixaban (Eliquis) PHA 08/30/24 In Process 22:00 Enalapril Tablet PHA 08/30/24 In Process (Vasotec Tablet) 22:00 Furosemide Tablet PHA 08/31/24 In Process (Lasix Tablet) 10:00 Allopurinol Tablet PHA 08/31/24 In Process (Zyloprim Tablet) 10:00 Levothyroxine Tablet PHA 08/31/24 In Process (Synthroid Tablet) 06:00 Carvedilol Tablet PHA 08/31/24 In Process (Coreg Tablet) 10:00 Date of Service: Aug 31, 2024 Billing Provider: CASSIA ONEAL MD Common Visit Codes: [id number] INP/OBS CARE(HIGH) CASSIA ONEAL MD Aug 31, 2024 09:35
--- NOTE | 2024-08-31 11:51 | DVHCONRES ---
FELIX ENNIS RESIDENT 08/31/24 1151: Date Seen: Aug 31, 2024 Resident Creating Document: FELIX ENNIS RESIDENT Referring Physician Dr. Blankenship Reason for Consultation Elevated troponin 627 History of Present Illness Patient is a 73-year-old female with past medical history of gout, hypertension, dyslipidemia, congestive heart failure, type 2 diabetes, atrial fibrillation, obstructive sleep apnea, who comes in due to right-sided flank pain that has been ongoing since Saturday night. According to the patient, on Saturday she re peatedly checked her blood pressure was continued to stay in the range of 180-199/90-92, which is what prompted this visit to the hospital. On review of systems patient is only complaining of nausea fatigue. Denies any vision changes, headache or difficulty breathing. Per patient, she is somewhat adherent to home medication, however, notes dietary indiscretions as she uses prepared microwavable meals often. Patient's breeding technician is Dr. Rizvi. Serial troponins were 76, 627, 474. Past Medical History gout, hypertension, dyslipidemia, congestive heart failure, type 2 diabetes, atrial fibrillation, obstructive sleep apnea, Past Surgical History Hernia repair surgery Family History: Diabetes mellitus G8 MOTHER Hypertension G8 MOTHER Social History Smoking: Denies Alcohol: Denies Drugs: Denies Allergies: Coded Allergies: NO KNOWN ALLERGIES (Unverified , 08/14/19) Home Meds Active Scripts Apixaban Base (ELIQUIS) 5 Mg Tab, 5 MG PO BID for 30 Days, #60 TAB start from August 25 this dose Prov:LARA MANTILLA MD 08/21/19 Apixaban Base (ELIQUIS) 5 Mg Tab, 2 TAB PO BID for 5 Days, #20 TAB 0 Refills dose total of 10mg twice a day for 5 more days and then start taking 5mg twice a day continuosly Prov:LARA MANTILLA MD 08/21/19 Sildenafil Citrate (Revatio) 20 Mg Tab, 20 MG PO TID for 30 Days, #90 TAB 0 Re fills Prov:LARA MANTILLA MD 08/21/19 Reported Medications Carvedilol (Carvedilol) 3.125 Mg Tab, 3.125 MG PO BID for 30 Days, MG 08/30/24 Furosemide (Furosemide) 40 Mg Tab, 1 TAB PO DAILY, #30 TAB 5 Refills 08/30/24 Glipizide (Glipizide Er) 2.5 Mg Tab, 2.5 MG PO DAILY for 30 Days, MG 08/30/24 Insulin Glargine (Lantus) 100 Unit/Ml Inj, 44 UNIT SC DAILY, INJ 08/14/19 Liraglutide (Victoza) 18 Mg/3 Ml Inj, 1.8 MG SUBCUT DAILY, #9 ML 3 Refills 08/14/19 Hydrochlorothiazide (Hydrochlorothiazide) 25 Mg Tab, 25 MG PO DAILY for 30 Days, MG 08/14/19 Enalapril Maleate (Enalapril Maleate) 2.5 Mg Tab, 2.5 MG PO DAILY for 30 Days, MG 08/14/19 Amlodipine Besylate (Amlodipine Besylate) 5 Mg Tab, 5 MG PO DAILY for 30 Days, MG 08/14/19 Atorvastatin Calcium (ATORVASTATIN CALCIUM) 80 Mg Tab, 80 MG PO DAILY, TAB 08/14/19 Levothyroxine Sodium (Levothyroxine Sodium) 25 Mcg Tab, 25 MCG PO QAM, MCG 08/14/19 Allopurinol (Allopurinol) 100 Mg Tab, 100 MG PO DAILY for 30 Days, MG 08/14/19 Current Medications Current Medications Medications (Trade) Dose Ordered Sig/Sandro Route PRN Reason Start Time Stop Time Status Last Admin Apixaban (Eliquis) 2.5 mg BID PO 08/30/24 22:00 08/31/24 09:03 Enalapril Maleate (Vasotec Tablet) 20 mg Q12HR PO 08/30/24 22:00 08/31/24 09:02 Furosemide (Lasix Tablet) 40 mg DAILY PO 08/31/24 10:00 08/31/24 09:02 Allopurinol (Zyloprim Tablet) 300 mg DAILY PO 08/31/24 10:00 08/31/24 09:03 Levothyroxine Sodium (Synthroid Tablet) 50 mcg QAM@0600 PO 08/31/24 06:00 08/31/24 05:21 Carvedilol (Coreg Tablet) 3.125 mg DAILY PO 08/31/24 10:00 08/31/24 09:04 Review of Systems Patient seen and examined at bedside. Patient is alert and oriented to time, place person and responding to all questions. General: Fatigue Eyes: No Pain, No Vision change, No Conjunctivae inflammation, No Eyelid inflammation, No Other, No Redness ENT: No Ear pain, No Ear discharge, No Nose pain, No Nose discharge, No Nose congestion, No Mouth pain, No Mouth swelling, No Throat pain, No Throat swelling, No Other Cardiovascular: No Chest Pain, No Palpitations, No Orthopnea, No Paroxysmal No Dyspnea, No Edema, No Lt Headedness, No Other Respiratory: No Cough, No Dry, No Shortness of breath, No SOB with exertion, No Wheezing, No Hemoptysis, No Pleuritic Pain, No Sputum, No Other Gastrointestinal: Nausea, No Vomiting, No Abdominal Pain, No Diarrhea, No Constipation, No Melena, No Hematochezia, No Other Genitourinary: No Dysuria, No Frequency, No Incontinence, No Hematuria, No Retention, No Other Musculoskeletal: No other, No neck pain, No shoulder pain, No arm pain, No back pain, No hand pain, No leg pain, No foot pain Skin: No Rash, No Lesions, No Jaundice, No Bruising, No Other Vital Signs Vital Signs Date Time Temp Pulse Resp B/P (MAP) Pulse Ox O2 Delivery O2 Flow Rate FiO2 08/31/24 09:04 65 159/132 08/31/24 08:55 97.3 20 100 97.3 08/31/24 08:00 Room Air* 0 21 Physical Exam General Appearance: Cooperative. Well developed. Well nourished. NAD Head Exam: Normal inspection Neck Exam: Normal inspection. Non-tender. Normal alignment Pulmonary/Respiratory: Chest non-tender. Clear bilateral breath sounds, no crackles, no wheezing. Cardiovascular/Chest: Regular rate and rhythm. No murmurs. No JVD. Peripheral Pulses: 2+ Radial (R). 2+ Radial (L). 2+ Pedal (R). 2+ Pedal (L) Abdominal Exam: Normal bowel sounds. Soft. normal abdomen, no visible veins, Nontender. No hepatospenomegaly. No masses Lower extremities: 1+ lower extremity edema Neuro/Mental Status: A&O x4. Coherent. Thoughts/Psych: Normal thought pattern. Appropriate mood and affect. Good judgement and insight Skin Exam: Normal inspection. Normal color. Warm. Dry Labs/Diagnostic Data Labs Test 08/31/24 11:11 08/30/24 02:49 08/29/24 16:03 08/29/24 14:37 Range/Units POC Glucose 250 H 70-106 mg/dl White Blood Count 8.9 4.4-10.8 10^3/uL Red Blood Count 4.21 4.0-5.20 10^6/uL Hemoglobin 12.7 12.2-16.2 g/dL Hematocrit 38.1 36.0-46.0 % Mean Corpuscular Volume 90.5 80.0-100.0 fL Mean Corpuscular Hemoglobin 30.2 28.0-32.0 pg Mean Corpuscular Hemoglobin Concent 33.4 32.0-36.0 g/dL Red Cell Distribution Width 16.4 H 11.8-14.3 % Platelet Count 264 140-450 10^3/uL Mean Platelet Volume 8.0 6.9-10.8 fL Neutrophils (%) (Auto) 65.8 37.0-80.0 % Lymphocytes (%) (Auto) 23.7 10.0-50.0 % Monocytes (%) (Auto) 8.2 0.0-12.0 % Eosinophils (%) (Auto) 1.7 0.0-7.0 % Basophils (%) (Auto) 0.6 0.0-2.0 % Neutrophils # (Auto) 5.8 1.6-8.6 10 ^3/uL Lymphocytes # (Auto) 2.1 0.4-5.4 10 ^3/uL Monocytes # (Auto) 0.7 0-1.3 10 ^3/uL Eosinophils # (Auto) 0.2 0-0.8 10 ^3/uL Basophils # (Auto) 0.1 0-0.2 10 ^3/uL Nucleated Red Blood Cells 0.1 % Sodium Level 141 136-145 mmol/L Potassium Level 3.9 3.5-5.1 mmol/L Chloride Level 108 H 98-107 mmol/L Carbon Dioxide Level 20 20-31 mmol/L Anion Gap 13 5-15 Blood Urea Nitrogen 24 H 9-23 mg/dL Creatinine 1.25 H 0.550-1.02 mg/dL Glomerular Filtration Rate Calc 45 >90 mL/min BUN/Creatinine Ratio 19.2 10.0-20.0 Serum Glucose 196 H 74-106 mg/dL Calcium Level 9.7 8.7-10.4 mg/dL Total Bilirubin 0.5 0.2-1.0 mg/dL Aspartate Amino Transferase (AST) 19 <34 U/L Alanine Aminotransferase (ALT) 20 7-40 U/L Alkaline Phosphatase 104 46-116 U/L Troponin I High Sensitivity 474 *H </=34 ng/L Total Protein 6.5 5.7-8.2 g/dL Albumin 4.1 3.2-4.8 g/dL Magnesium Level 1.5 L 1.6-2.6 mg/dL Lipase 48 12-53 U/L Thyroid Stimulating Hormone (TSH) 1.76 0.55-4.78 uIU/mL Urine Color Colorless Yellow Urine Clarity Clear Clear Urine pH 5.0 5.0-9.0 Urine Specific [place] 1.007 1.001-1.035 Urine Protein Negative Negative Urine Ketones Negative Negative Urine Blood Negative Negative /uL Urine Nitrite Negative Negative Urine Bilirubin Negative Negative Urine Urobilinogen Normal Negative mg/dL Urine Leukocyte Esterase Negative Negative /uL Urine RBC 1 0 - 4 /hpf Urine Microscopic WBC 1 0-5 /HPF Urine Squamous Epithelial Cells Few <5 /hpf Urine Bacteria Few H None Seen /hpf Urine Hyaline Casts Few 0 - 2 /lpf Urine Glucose Normal Normal mg/dL Assessment Hypertensive urgency NSTEMI type 2 due to above Chronic diastolic heart failure Atrial fibrillation, CHADS-VASc 5 point; HAS BLED 3 Moderate tricuspid regurgitation Obstructive sleep apnea on CPAP Dyslipidemia Type 2 diabetes Plan: Continue carvedilol, enalapril, amlodipine Continue anticoagulation CPAP at night Rest of the management as per hospitalist Thank you so much for the opportunity to consult on your patient. Cardiology team will sign off. In case of any questions or concerns please feel free to reach out. Plan discussed with Dr. Rizvi Plan discussed with: Patient, Other (RN) Visit Coding Cardiology RES Date of Service: Aug 31, 2024 Billing Provider: MANDY RIZVI MD Cardiology Common Codes: [id number] INP/OBS CARE (High) MANDY RIZVI MD 08/31/24 1251: Family History: Diabetes mellitus G8 MOTHER Hypertension G8 MOTHER Allergies: Coded Allergies: NO KNOWN ALLERGIES (Unverified , 08/14/19) Home Meds Active Scripts Apixaban Base (ELIQUIS) 5 Mg Tab, 5 MG PO BID for 30 Days, #60 TAB start from August 25 this dose Prov:LARA MANTILLA MD 08/21/19 Apixaban Base (ELIQUIS) 5 Mg Tab, 2 TAB PO BID for 5 Days, #20 TAB 0 Refills dose total of 10mg twice a day for 5 more days and then start taking 5mg twice a day continuosly Prov:LARA MANTILLA MD 08/21/19 Sildenafil Citrate (Revatio) 20 Mg Tab, 20 MG PO TID for 30 Days, #90 TAB 0 Refills Prov:LARA MANTILLA MD 08/21/19 Reported Medications Carvedilol (Carvedilol) 3.125 Mg Tab, 3.125 MG PO BID for 30 Days, MG 08/30/24 Furosemide (Furosemide) 40 Mg Tab, 1 TAB PO DAILY, #30 TAB 5 Refills 08/30/24 Glipizide (Glipizide Er) 2.5 Mg Tab, 2.5 MG PO DAILY for 30 Days, MG 08/30/24 Insulin Glargine (Lantus) 100 Unit/Ml Inj, 44 UNIT SC DAILY, INJ 08/14/19 Liraglutide (Victoza) 18 Mg/3 Ml Inj, 1.8 MG SUBCUT DAILY, #9 ML 3 Refills 08/14/19 Hydrochlorothiazide (Hydrochlorothiazide) 25 Mg Tab, 25 MG PO DAILY for 30 Days, MG 08/14/19 Enalapril Maleate (Enalapril Maleate) 2.5 Mg Tab, 2.5 MG PO DAILY for 30 Days, MG 08/14/19 Amlodipine Besylate (Amlodipine Besylate) 5 Mg Tab, 5 MG PO DAILY for 30 Days, MG 08/14/19 Atorvastatin Calcium (ATORVASTATIN CALCIUM) 80 Mg Tab, 80 MG PO DAILY, TAB 08/14/19 Levothyroxine Sodium (Levothyroxine Sodium) 25 Mcg Tab, 25 MCG PO QAM, MCG 08/14/19 Allopurinol (Allopurinol) 100 Mg Tab, 100 MG PO DAILY for 30 Days, MG 08/14/19 Plan/Recommendation pt seen with CV team normal echo severe htn, nstemi given morbid obesity, conservative management is prefered somewhat compliant with bp meds asa ,statin Plan discussed with: Patient FELIX ENNIS RESIDENT Aug 31, 2024 11:51 MANDY RIZVI MD Aug 31, 2024 12:51
[2024-09-01 01:00] VITALS: BP 135/52; PULSE 64; RESP 18; TEMP 97.7; O2SAT 96
[2024-09-01 05:00] VITALS: BP 158/81; PULSE 69; RESP 18; TEMP 97.8; O2SAT 96
[2024-09-01 08:00] VITALS: PULSE 68
--- NOTE | 2024-09-01 08:40 | DVHPN2 ---
Reviewed: Care Plan, H&P, Labs, Medications, Previous Orders, Radiology Changes from previous H/P or p: No Changes Genitourinary: Other (Right flank pain) Objective Vitals Vital Signs Date Time Temp Pulse Resp B/P (MAP) Pulse Ox O2 Delivery O2 Flow Rate FiO2 09/01/24 05:00 97.8 69 18 158/81 (106) 96 97.8 08/31/24 20:00 Room Air* 0 21 Intake/Output Intake and Output 09/01/24 07:00 Intake Total 500 ml Balance 500 ml Intake Oral 500 ml # Voids 6 # Bowel Movements 1 Medications Current Medications Medications Dose Ordered Sig/Sandro Route Start Time Stop Time Status Last Admin Dose Admin Ketorolac Tromethamine 15 mg Q6HPRN PRN IV 08/29/24 17:00 09/03/24 16:59 09/01/24 04:52 15 MG Acetaminophen 650 mg Q6HP PRN PO 08/29/24 17:00 Diagnostic Test (Pha) 1 strip ACHS 08/29/24 17:00 09/01/24 06:06 1 STRIP Insulin Human Regular ACHS SC 08/29/24 17:00 09/01/24 06:07 3 UNITS Dextrose 50 ml UD PRN IV 08/29/24 17:00 Hydralazine HCl 10 mg Q6HP PRN IV 08/29/24 17:00 Sildenafil Citrate 20 mg TID PO 08/29/24 22:00 09/01/24 06:05 20 MG Atorvastatin Calcium 80 mg HS PO 08/29/24 22:00 08/31/24 21:18 80 MG Apixaban 2.5 mg BID PO 08/30/24 22:00 08/31/24 21:19 2.5 MG Enalapril Maleate 20 mg Q12HR PO 08/30/24 22:00 08/31/24 21:18 20 MG Furosemide 40 mg DAILY PO 08/31/24 10:00 08/31/24 09:02 40 MG Allopurinol 300 mg DAILY PO 08/31/24 10:00 08/31/24 09:03 300 MG Levothyroxine Sodium 50 mcg QAM@0600 PO 08/31/24 06:00 09/01/24 06:05 50 MCG Carvedilol 3.125 mg DAILY PO 08/31/24 10:00 08/31/24 09:04 3.125 MG Laboratory Results Laboratory Tests 08/30/24 02:49 Urinalysis Test 08/29/24 14:37 Urine Color Colorless (Yellow) Urine Clarity Clear (Clear) Urine pH 5.0 (5.0-9.0) Urine Specific [place] 1.007 (1.001-1.035) Urine Protein Negative (Negative) Urine Ketones Negative (Negative) Urine Blood Negative /uL (Negative) Urine Nitrite Negative (Negative) Urine Bilirubin Negative (Negative) Urine Urobilinogen Normal mg/dL (Negative) Urine Leukocyte Esterase Negative /uL (Negative) Urine RBC 1 /hpf (0 - 4) Urine Microscopic WBC 1 /HPF (0-5) Urine Squamous Epithelial Cells Few /hpf (<5) Urine Bacteria Few /hpf (None Seen) H Urine Hyaline Casts Few /lpf (0 - 2) Urine Glucose Normal mg/dL (Normal) Labs and/or images reviewed: Labs reviewed by me, Image(s) reviewed by me Assessment/Plan Assessment/Plan Hypertensive urgency with systolic of 190: Amlodipine Vasotec hydrochlorothiazide Elevated troponin 627: Consult for patient's sas etl developer Dr. Little appreciated, ejection fraction 60 percent, no further cardiac workup Acute on chronic congestive heart failure systolic versus diastolic Hypertension Uncontrolled diabetes: Insulin sliding scale Gout Hypothyroidism: Synthroid AFib: Eliquis Hypercholesterolemia: Lipitor Pulmonary hypertension: Sildenafil Noncompliance Chest x-ray negative Plan discussed with: Patient Date of Service: Sep 01, 2024 Billing Provider: CASSIA ONEAL MD Common Visit Codes: [id number] INP/OBS CARE(HIGH) CASSIA ONEAL MD Sep 01, 2024 08:40
--- NOTE | 2024-09-01 08:43 | DVHDS2 ---
Discharge Summary Date of Admission Aug 29, 2024 at 16:52 Date of Discharge: Sep 01, 2024 Admitting Diagnosis Uncontrolled blood pressure and chest pain Wounds: None Labs/Diagnostic Data: Laboratory Results Test 09/01/24 05:59 08/30/24 02:49 08/29/24 16:03 08/29/24 14:37 POC Glucose 198 mg/dl (70-106) White Blood Count 8.9 10^3/uL (4.4-10.8) Red Blood Count 4.21 10^6/uL (4.0-5.20) Hemoglobin 12.7 g/dL (12.2-16.2) Hematocrit 38.1 % (36.0-46.0) Mean Corpuscular Volume 90.5 fL (80.0-100.0) Mean Corpuscular Hemoglobin 30.2 pg (28.0-32.0) Mean Corpuscular Hemoglobin Concent 33.4 g/dL (32.0-36.0) Red Cell Distribution Width 16.4 % (11.8-14.3) Platelet Count 264 10^3/uL (140-450) Mean Platelet Volume 8.0 fL (6.9-10.8) Neutrophils (%) (Auto) 65.8 % (37.0-80.0) Lymphocytes (%) (Auto) 23.7 % (10.0-50.0) Monocytes (%) (Auto) 8.2 % (0.0-12.0) Eosinophils (%) (Auto) 1.7 % (0.0-7.0) Basophils (%) (Auto) 0.6 % (0.0-2.0) Neutrophils # (Auto) 5.8 10 ^3/uL (1.6-8.6) Lymphocytes # (Auto) 2.1 10 ^3/uL (0.4-5.4) Monocytes # (Auto) 0.7 10 ^3/uL (0-1.3) Eosinophils # (Auto) 0.2 10 ^3/uL (0-0.8) Basophils # (Auto) 0.1 10 ^3/uL (0-0.2) Nucleated Red Blood Cells 0.1 % Sodium Level 141 mmol/L (136-145) Potassium Level 3.9 mmol/L (3.5-5.1) Chloride Level 108 mmol/L (98-107) Carbon Dioxide Level 20 mmol/L (20-31) Anion Gap 13 (5-15) Blood Urea Nitrogen 24 mg/dL (9-23) Creatinine 1.25 mg/dL (0.550-1.02) Glomerular Filtration Rate Calc 45 mL/min (>90) BUN/Creatinine Ratio 19.2 (10.0-20.0) Serum Glucose 196 mg/dL (74-106) Calcium Level 9.7 mg/dL (8.7-10.4) Total Bilirubin 0.5 mg/dL (0.2-1.0) Aspartate Amino Transferase (AST) 19 U/L (<34) Alanine Aminotransferase (ALT) 20 U/L (7-40) Alkaline Phosphatase 104 U/L (46-116) Troponin I High Sensitivity 474 ng/L (</=34) Total Protein 6.5 g/dL (5.7-8.2) Albumin 4.1 g/dL (3.2-4.8) Magnesium Level 1.5 mg/dL (1.6-2.6) Lipase 48 U/L (12-53) Thyroid Stimulating Hormone (TSH) 1.76 uIU/mL (0.55-4.78) Urine Color Colorless (Yellow) Urine Clarity Clear (Clear) Urine pH 5.0 (5.0-9.0) Urine Specific [place] 1.007 (1.001-1.035) Urine Protein Negative (Negative) Urine Ketones Negative (Negative) Urine Blood Negative /uL (Negative) Urine Nitrite Negative (Negative) Urine Bilirubin Negative (Negative) Urine Urobilinogen Normal mg/dL (Negative) Urine Leukocyte Esterase Negative /uL (Negative) Urine RBC 1 /hpf (0 - 4) Urine Microscopic WBC 1 /HPF (0-5) Urine Squamous Epithelial Cells Few /hpf (<5) Urine Bacteria Few /hpf (None Seen) Urine Hyaline Casts Few /lpf (0 - 2) Urine Glucose Normal mg/dL (Normal) Other Laboratory Tests 08/30/24 02:49 Brief Hx & Hospital Course: 73-year-old female with a history of hypertension CHF diabetes gout hypothyroidism AFib on Eliquis hypercholesterolemia pulmonary hypertension and sildenafil noncompliant came in complaining of elevated blood pressure and chest pain systolic was 190 treated with the amlodipine Vasotec and hydrochlorothiazide troponin was [address]-elevation RI type 2. Echo 60 percent ejection fraction cardiology consult by Dr. Little no further cardiac workup. Patient was found to be noncompliant with a blood pressure medications advised compliance and discharged home. Cardiology cleared for discharge. 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 Little appreciated, ejection fraction 60 percent, no further cardiac workup Acute on chronic congestive heart failure systolic versus diastolic Hypertension Uncontrolled diabetes: Insulin sliding scale Gout Hypothyroidism: Synthroid AFib: Eliquis Hypercholesterolemia: Lipitor Pulmonary hypertension: Sildenafil Noncompliance Chest x-ray negative Discharge Disposition: Home Discharge Instruct/Medications Diet: Cardiac 2g Na,low cholest Activity: Light activity Follow Up/Referral: Continue all your previous home medications Take medications regularly including blood pressure medications Follow up with the primary Dr Medications: none 35 (Time taken for discharge summary 35 minutes) Discharge Statement: "Patient was advised to return to the ER or call 911 if any headaches, dizziness, shortness of breath, chest pain, abdominal pain, bleeding, fevers, or worsening of medical condition. Patient was counseled about treatment plan, medications, possible side effects, patientverbalized understanding. All questions were answered to the best of my ability. 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 Little appreciated, ejection fraction 60 percent, no further cardiac workup Acute on chronic congestive heart failure systolic versus diastolic Hypertension Uncontrolled diabetes: Insulin sliding scale Gout Hypothyroidism: Synthroid AFib: Eliquis Hypercholesterolemia: Lipitor Pulmonary hypertension: Sildenafil Noncompliance Chest x-ray negative Date of Service: Sep 01, 2024 Billing Provider: CASSIA ONEAL MD Common Visit Codes: 32939-OQT/OBS DISCH DAY >30min CASSIA ONEAL MD Sep 01, 2024 08:43
[2024-09-01 09:00] VITALS: BP 111/63; PULSE 69; RESP 15; TEMP 97.7; O2SAT 94
[2024-09-01 10:20] VITALS: BP 158/81; PULSE 69; RESP 18; TEMP 97.8; O2SAT 96
== END 2024-09-01 11:27 | disposition home or self-care (01) | DRG 280 ==
LOC: ER 14:23 → OVERFLOW 16:52 → TELE-CENTR 21:05
PROVIDERS: ADMIT Family Medicine; ATTEND Family Medicine
DX: I16.0 Hypertensive urgency (principal); I50.43 Acute on chronic combined systolic (congestive) and diastolic (congestive) heart failure; I21.A1 Myocardial infarction type 2; Z68.43 Body mass index [BMI] 50.0-59.9, adult; I11.0 Hypertensive heart disease with heart failure; E11.65 Type 2 diabetes mellitus with hyperglycemia; E03.9 Hypothyroidism, unspecified; M10.9 Gout, unspecified; E83.42 Hypomagnesemia; E78.00 Pure hypercholesterolemia, unspecified; I27.20 Pulmonary hypertension, unspecified; I48.91 Unspecified atrial fibrillation; I07.1 Rheumatic tricuspid insufficiency; E11.21 Type 2 diabetes mellitus with diabetic nephropathy; E66.9 Obesity, unspecified; Z91.199 Patient's noncompliance with other medical treatment and regimen due to unspecified reason; Z79.01 Long term (current) use of anticoagulants
CPT/HCPCS: 36415; 71046; 74176; 80053; 81001; 82962; 83690; 83735; 84443; 84484; 85025; 93005; 93306; 96361; 96374; 96375; G0378; J1815; J1885